=== PATIENT | male | born 1955 | race Caucasian/White ===

== ENCOUNTER 2016-08-27 09:55 | Outpatient (CLI) | payer OTHER ==
[2016-08-27] VITALS (7 sets, daily range): BP systolic 102–166; BP diastolic 66–89
[~2016-08-27 09:55] MED LIST: AMIO200T PO; ASPI-482 PO; ATORVASTATIN CA80 MG PO; Aspirin PO; CHOL10003 PO; CLOP75TA PO; FENO54TA6 PO; FISH1CAP PO; LISI-334 PO; LISI2.5T PO; METF500T9 PO; METO-269 PO; METO25TA9 PO; NIAC750T PO
[2016-08-27] MEDS ORDERED: IV 1/2 NORMAL SALINE 1,000 ML IV ONE (10:15)
[2016-08-27] MEDS ORDERED: ASPI-482 PO (10:28)
[2016-08-27 10:35] LABS: HEMATOCRIT 37.9 % (39.0-53.0); HEMOGLOBIN 12.7 g/dL (13.0-17.5); RED BLOOD COUNT 4.51 x10^6/uL (4.30-5.70); RED CELL DISTRIBUTION WIDTH 14.2 % (11.5-14.5); WHITE BLOOD COUNT 6.3 x10^3/uL (4.0-11.0)
[2016-08-27 10:50] LABS: CALCIUM 8.7 mg/dL (8.5-10.1); CREATININE 1.5 mg/dL (0.7-1.3); GFR 47.3; POTASSIUM 4.4 mmol/L (3.5-5.1)
[2016-08-27 10:58] LABS: PROTHROMBIN TIME PATIENT 12.7 SEC (11.7-14.0)
[2016-08-27] MEDS ORDERED: IODIXANOL 320 MG/ML 100 ML VIAL. ONE ×2 (11:52→12:31)
[2016-08-27] MEDS ORDERED: LIDOCAINE 2% 20 ML VIAL. ONE (11:52)
[2016-08-27] MEDS ORDERED: VERAPAMIL 5 MG/2 ML VIAL. ONE (12:13)
[2016-08-27] MEDS ORDERED: fentaNYL PF VIAL 100 MCG/2 ML VIAL ONE (12:13)
[2016-08-27] MEDS ORDERED: MIDAZOLAM HCL/PF 2 MG/2 ML VIAL. ONE (12:13)
[2016-08-27] MEDS ORDERED: HEPARIN for IV BOLUS 10,000 UNIT/10 ML VIAL. ONE (12:13)
[2016-08-27] MEDS ORDERED: NITROGLYCERIN 200 MCG/2 ML SYRINGE FOR CATH/VASC LAB. ONE (12:13)
[2016-08-27] MEDS ORDERED: HEPARIN for IV BOLUS 10,000 UNIT/10 ML VIAL. IART ONE (12:30)
[2016-08-27] MEDS ORDERED: MIDAZOLAM HCL/PF 2 MG/2 ML VIAL. IV ONE (12:30)
[2016-08-27] MEDS ORDERED: VERAPAMIL 5 MG/2 ML VIAL. IART ONE (12:30)
[2016-08-27] MEDS ORDERED: NITROGLYCERIN 200 MCG/2 ML SYRINGE FOR CATH/VASC LAB. IART ONE (12:30)
[2016-08-27] MEDS ORDERED: IODIXANOL 320 MG/ML 100 ML VIAL. IART ONE (12:30)
[2016-08-27] MEDS ORDERED: LIDOCAINE 2% 20 ML VIAL. IJ ONE (12:30)
[2016-08-27] MEDS ORDERED: fentaNYL PF VIAL 100 MCG/2 ML VIAL IV ONE (12:30)
[2016-08-27] MEDS ORDERED: CONTRAST GIVEN MC PRN (12:45)
[2016-08-27] MEDS ORDERED: IV 1/2 NORMAL SALINE 1,000 ML IV SCH (13:10)
[2016-08-27] MEDS ORDERED: MEXI200C PO (14:02)
--- NOTE | 2016-08-27 14:45 | CARD ---
APPROVED REPORT Procedure(s) performed: Left heart catheterization, selective coronary angiography and left ventricul ography via right transradial approach INDICATION The indication(s) include : Recurrent ventricular tachycardia, ischemic cardiomyopathy. PROCEDURE NARRATIVE After explaining the risks, benefits and alternative options, informed consent was obtained from rosa maria ent. Patient was brought to the cardiac Isotope Technologist and right wrist was prepped and draped in the usual fashion after confirming a positive modified Adama's test. Arterial access was obtained in the [facility] radial artery and a 6 Macedonian sheath was inserted. 6 Macedonian Daniel catheter was used to perform aggie ective angiography of the left and right coronary arteries. 6 Macedonian pigtail catheter was used to pe rform left ventriculography. Patient tolerated the procedure well. Hemostasis was achieved using TR band. There were no immediate complications. The following findings were noted. FINDINGS 1. Hemodynamics: Left ventricular end-diastolic pressure of 23 mmHg. No pullback gradient across th e aortic valve. 2. Left ventriculography: Posterobasal and diaphragmatic wall hypokinesis with ejection fraction est imated at 30-35%. No significant mitral regurgitation seen. 3. Coronary angiography: a. The left main coronary artery arose from the left sinus of Valsalva, gave rise to the left anteri or descending and left circumflex arteries and showed 20% stenosis involving the proximal segment. b. The left anterior descending artery did not show any significant stenosis. c. The left circumflex artery did not show any significant stenosis. d. The right coronary artery arose from the right sinus of Valsalva and showed 100% long and chronic total occlusion involving proximal, mid and distal segments (instent distally) with reconstitution o f posterior descending and posterolateral branches from left to right collaterals. Conclusion 1. Severe single-vessel coronary disease -long and chronic total occlusion involving the right coron tor artery that was described in prior cardiac catheterization. 2. Posterobasal and diaphragmatic wall hypokinesis with ejection fraction estimated at 30-35%. Recommendations 1. Optimization of medical therapy. 2. Refer patient to electrophysiology service for possible VT ablation.
== END 2016-08-27 15:30 | disposition home or self-care (01) ==
LOC: CCL 09:55
PROVIDERS: ATTEND Internal Medicine Cardiovascular Disease
DX: I25.10 Atherosclerotic heart disease of native coronary artery without angina pectoris (principal); I25.82 Chronic total occlusion of coronary artery; I25.2 Old myocardial infarction; E78.00 Pure hypercholesterolemia, unspecified; I10 Essential (primary) hypertension; E11.9 Type 2 diabetes mellitus without complications; F17.200 Nicotine dependence, unspecified, uncomplicated; Z95.5 Presence of coronary angioplasty implant and graft; Z79.01 Long term (current) use of anticoagulants; Z82.49 Family history of ischemic heart disease and other diseases of the circulatory system
CPT/HCPCS: 36415; 80048; 85027; 85610; 93458; C1769; C1892; J2250; J3010; J3490; 99152; 99153

== ENCOUNTER → 2018-01-07 | Outpatient (CLI) | payer BC ==
[2016-08-27 14:30] VITALS: BP 110/70
[~2018-01-07] MED LIST changes: +METO-239 PO; -METO25TA9 PO; +MEXI200C PO; +REGADENOSON 0.4 MG/5 ML DISP.SYRIN. IV ONE
--- NOTE | 2018-01-07 09:32 | CARD ---
MR#: [id number] Date of Study: 01/07/2018 Ordering Physician: LEON GOULD, Referring Physician: LEON GOULD Tech: Laila Heaton RDCS APPROVED REPORT EXAM: Two-dimensional and M-mode echocardiogram with Doppler and color Doppler. Other Information Quality : GoodHR: 68bpm Rhythm : Pacemaker INDICATION Congestive Heart Failure 2D DIMENSIONS RVDd3.6 (2.9-3.5cm)Left Atrium(2D)3.8 (1.6-4.0cm) IVSd1.4 (0.7-1.1cm)Aortic Root(2D)2.9 (2.0-3.7cm) LVDd6.0 (3.9-5.9cm)LVOT Diameter2.1 (1.8-2.4cm) PWd0.9 (0.7-1.1cm)LVDs4.8 (2.5-4.0cm) FS (%) 19.6 %SV70.5 ml Aortic Valve AoV Peak Prasanth.161.6cm/sAoV VTI30.1cm AO Peak GR.10.4mmHgLVOT Peak Prasanth.99.6cm/s AO Mean GR.6mmHgAVA (VMAX)2.04cm2 CARMELO (VTI)2.10cm2 Mitral Valve MV E Vhjdjcca62.5cm/sMV E Peak Gr.4mmHg MV DECEL IFKY128zdEM A Fudnhndq68.0cm/s MV E Mean Gr.1mmHgE/A Ratio0.7 MV A Enzfijac515ec Pulmonary Valve PV Peak Dgzyezdy389.7cm/s Tricuspid Valve TR P. Zahexixx239gy/sRAP KADCKDGK1sxOr TR Peak Gr.92lrLvZVOJ91mkYd Pulmonary Vein S1 Mjfbjwsn46.1cm/sD2 Hjhdjxnk95.3cm/s PVa ybiegwys670edfa LEFT VENTRICLE The Left Ventricle is mildly dilated. There is mild concentric left ventricular hypertrophy. The syst olic function is moderately impaired. The Ejection Fraction is estimated at 35%. There is global hypo kinesis of the left ventricle. Transmitral Doppler flow pattern is Grade I-abnormal relaxation patter n. RIGHT VENTRICLE The right ventricle is mildly dilated. There is normal right ventricular wall thickness. The right ve ntricular systolic function is normal. Device lead noted in RA/RV. ATRIA The left atrium is mildly dilated. The right atrium is mildly dilated. The interatrial septum is inta ct with no evidence for an atrial septal defect or patent foramen ovale as noted on 2-D or Doppler im aging. AORTIC VALVE The aortic valve is trileaflet. The aortic valve is normal in structure and function. Doppler and Col or Flow revealed no significant aortic regurgitation. There is no significant aortic valvular stenosi s. MITRAL VALVE The mitral valve is normal in structure and function. There is no evidence of mitral valve prolapse. There is no mitral valve stenosis. Doppler and Color-flow revealed mild mitral regurgitation. TRICUSPID VALVE The tricuspid valve is normal in structure and function. Doppler and Color Flow revealed mild tricusp id regurgitation. The PA pressure was estimated at 42 mmHg. There is no tricuspid valve prolapse or v egetation. There is no tricuspid valve stenosis. PULMONIC VALVE The pulmonary valve is normal in structure and function. Doppler and Color Flow revealed no pulmonic valvular regurgitation. There is no pulmonic valvular stenosis. GREAT VESSELS The aortic root is normal in size. The ascending aorta is normal in size. PERICARDIAL EFFUSION There is no evidence of significant pericardial effusion. Critical Notification Critical Value: No <Conclusion> The Left Ventricle is mildly dilated. The systolic function is moderately impaired. The Ejection Fraction is estimated at 35%. There is global hypokinesis of the left ventricle. There is mild concentric left ventricular hypertrophy. Device lead noted in RA/RV. There is no significant aortic valvular stenosis. Doppler and Color Flow revealed no significant aortic regurgitation. Doppler and Color-flow revealed mild mitral regurgitation. Doppler and Color Flow revealed mild tricuspid regurgitation. The PA pressure was estimated at 42 mmHg. Signed by : Diego Pedraza MD Electronically Approved : 01/07/2018 09:31:51
--- NOTE | 2018-01-07 12:24 | RAD ---
MR#: [id number] Date of Study: 01/07/2018 Ordering Physician: LEON GOULD, Referring Physician: PIPPA LORENZ Tech: RT Del (R) (N) APPROVED REPORT Test Type: Pharmacological Stress Nurse/Tech: Judy Chambers R.N. Test Indications: v tach Cardiac History: Family history, Hypertension, CAD, Stents, Pacemaker/defibrillator, former smoker Medications: Zocor Medical History: See Electronic Medical Record Resting ECG: NSR Resting Heart Rate: 59 bpm Resting Blood Pressure: 127/77mmHg Pretest Chest Pain: No chest pain Nurse/Tech Notes S1S2, lungs sound clear Consent: The procedure was explained to the patient in lay terms. Informed consent was witnessed. William eout was entered into [employer] History and Stress Test performed by Judy Chambers RJoeyN. Pharm. Details Pharmacologic stress testing was performed using 0.4mg per 5ml of regadenoson given intravenously ove r 7-10 seconds. Stress Symptoms Dyspnea POST EXERCISE Reason for Termination: Infusion complete Target HR: 132 Max HR: 75 bpm Max Blood Pressure: 144/75mmHg Blood Pressure response to exercise: Normal blood pressure response during stress. Chest Pain: No. Arrhythmia: No. ST Change: No. INTERPRETATION Stress EKG Conclusion: Baseline EKG showed sinus rhythm with old inferior infarct. Nondiagnostic schofield ges at peak stress. No arrhythmias. Imaging Protocol IMAGE PROTOCOL: Rest Tc-99m/stress Tc-99m 1 day Rest: Stress: Viability: Radiopharm.Tc99m LshumcsvrJh10a Sestamibi Lxsa34eHc 33.6mCi Duration 13min. 13min. Img Date 01/07/2018 01/07/2018 Inj-Img Unhb04gww. 60min. Rest Admin Site:IV - Right AntecubitalAdministrator:RT Del (R)(N) Stress Admin Site: IV - Right AntecubitalAdministrator: RT Del (R)(N) STRESS DATA End Diast. Vol.139.0mlLVEDV index BSA69.0ml End Syst. Vol.61.0mlLVESV index BSA30.0ml Myocardial Bmlz192.0gEject. Jrrewwlo09.0% Stress Scores Regional WT3.00Summed WT35.00 Regional WM0.00Summed WM5.00 LV Perfusion Scintigraphic images showed large fixed defect involving the inferior wall and extending into the inf eroseptal and inferolateral self consistent with previous myocardial infarction without any signific ant reversibility. Wall Motion Mid to distal inferior wall hypokinesis with ejection fraction calculated at 56%. LV Perf. Quant 17 Seg. SSS24.00 17 Seg. SRS24.00 17 Seg. SDS2.00 Stress Defect Extent (% LAD)1.30Rest Defect Extent (% LAD)4.40Rev. Defect Extent (% LAD)0.00 Stress Defect Extent (% LCX) 53.80Rest Defect Extent (% LCX)35.00Rev. Defect Extent (% LCX)11.30 Stress Defect Extent (% RCA)96.70Rest Defect Extent (% RCA)97.80Rev. Defect Extent (% RCA)2.20 Stress Defect Extent (% YOSELYN)39.10Rest Defect Extent (% YOSELYN)38.90Rev. Defect Extent (% YOSELYN)3.30 Conclusion 1. Regadenoson cardioisotope stress test showed large infarct involving the inferior wall and extendi ng into the inferoseptal and inferolateral self without any significant ischemia. 2. Mid to distal inferior wall hypokinesis with ejection fraction calculated at 56%. 3. Low risk for cardiac events. Signed by : Leon Gould, Electronically Approved : 01/07/2018 12:24:09
== END | disposition home or self-care (01) ==
LOC: ECHO 07:48
PROVIDERS: ATTEND Internal Medicine Cardiovascular Disease
DX: I08.1 Rheumatic disorders of both mitral and tricuspid valves (principal); I47.2 Ventricular tachycardia; E78.5 Hyperlipidemia, unspecified; I11.0 Hypertensive heart disease with heart failure; I50.22 Chronic systolic (congestive) heart failure; I25.2 Old myocardial infarction; I25.10 Atherosclerotic heart disease of native coronary artery without angina pectoris; Z87.891 Personal history of nicotine dependence; Z82.49 Family history of ischemic heart disease and other diseases of the circulatory system
CPT/HCPCS: 36415; 78452; 80061; 93017; 93306; 96374; 96375; 96376; A9500; J2785

== ENCOUNTER → 2019-07-05 | Outpatient (CLI) | payer BC ==
[2016-08-27 14:30] VITALS: BP 110/70
[~2019-07-05] MED LIST changes: +LIPITOR80 MG PO; +METF500T11 PO; -METF500T9 PO; +SOTA80TA48 PO
--- NOTE | 2019-07-05 09:47 | CARD ---
MR#: [id number] Date of Study: 07/05/2019 Ordering Physician: LEON GOULD, Referring Physician: LEON GOULD, Tech: [place] YISEL APPROVED REPORT EXAM: Two-dimensional and M-mode echocardiogram with Doppler and color Doppler. Other Information Quality : Good INDICATION Congestive Heart Failure ICD 2D DIMENSIONS RVDd3.1 (2.9-3.5cm)Left Atrium(2D)3.6 (1.6-4.0cm) IVSd1.1 (0.7-1.1cm)Aortic Root(2D)2.5 (2.0-3.7cm) LVDd5.5 (3.9-5.9cm)LVOT Diameter2.1 (1.8-2.4cm) PWd0.9 (0.7-1.1cm)LVDs4.9 (2.5-4.0cm) FS (%) 9.9 %SV31.2 ml LVEF(%)20.0 (>50%) Aortic Valve AoV Peak Prasanth.148.7cm/sAoV VTI31.3cm AO Peak GR.8.8mmHgLVOT Peak Prasanth.103.6cm/s AO Mean GR.5mmHgAVA (VMAX)2.34cm2 CARMELO (VTI)2.00cm2 Mitral Valve MV E Gmsvzbzv52.3cm/sMV DECEL IYCR668xk MV A Uonzdexn61.2cm/sE/A Ratio0.7 Tricuspid Valve TR P. Ofvhighw943cb/sRAP TTUCKMSN7awZl TR Peak Gr.50dvZuQWAW13xrGa Pulmonary Vein S1 Wspbwfip84.5cm/sD2 Mefwuunh94.3cm/s LEFT VENTRICLE The left ventricle is normal size. There is normal left ventricular wall thickness. Left ventricle sy stolic function is moderately impaired. The Ejection Fraction is 30-35%. There is moderate global hyp okinesis of the left ventricle. Transmitral Doppler flow pattern is Grade I-abnormal relaxation patte rn. RIGHT VENTRICLE The right ventricle is normal size. The right ventricular systolic function is normal. There is a pac emaker lead in the right ventricle. ATRIA The left atrium size is normal. The right atrium size is normal. A pacemaker is seen in the right atr ium consistent with history. The interatrial septum is intact with no evidence for an atrial septal d efect or patent foramen ovale as noted on 2-D or Doppler imaging. AORTIC VALVE The aortic valve is calcified but opens well. Doppler and Color Flow revealed no significant aortic r egurgitation. There is no significant aortic valvular stenosis. MITRAL VALVE The mitral valve is normal in structure and function. There is no evidence of mitral valve prolapse. There is no mitral valve stenosis. Doppler and Color-flow revealed mild mitral regurgitation. TRICUSPID VALVE The tricuspid valve is normal in structure and function. Doppler and Color Flow revealed trace tricus pid regurgitation. The PA pressure was estimated at 31 mmHg. There is no tricuspid valve stenosis. PULMONIC VALVE The pulmonic valve is not well visualized. Doppler and Color Flow revealed trace pulmonic valvular re gurgitation. There is no pulmonic valvular stenosis. GREAT VESSELS The aortic root is normal in size. The ascending aorta is mildly dilated at 3.5 cm. The IVC is normal in size and collapses >50% with inspiration. PERICARDIAL EFFUSION There is no evidence of significant pericardial effusion. Critical Notification Critical Value: No <Conclusion> Left ventricle systolic function is moderately impaired. The Ejection Fraction is 30-35%. Transmitral Doppler flow pattern is Grade I-abnormal relaxation pattern. There is a pacemaker lead in RA/RV Mild mitral regurgitation. Trace tricuspid regurgitation. The PA pressure was estimated at 31 mmHg. There is no evidence of significant pericardial effusion. Signed by : Leon Gould, Electronically Approved : 07/05/2019 09:46:31
--- NOTE | 2019-07-05 12:32 | RAD ---
MR#: [id number] Date of Study: 07/05/2019 Ordering Physician: LEON GOULD, Referring Physician: PIPPA LORENZ Tech: RT Aissatou Mathis) (N) APPROVED REPORT Test Type: Pharmacological Stress Nurse/Tech: RT Del (Jarred) (N) Test Indications: CORONARY ARTERY DISEASE Cardiac History: 3 STENTS ABOUT 6 YEARS AGO, defibrillator Medications: SEE EHR Medical History: hypertension, ex smoker, diabetic Resting ECG: sinus rhythm Resting Heart Rate: 60 bpm Resting Blood Pressure: 156/86mmHg Nurse/Tech Notes Consent: The procedure was explained to the patient in lay terms. Informed consent was witnessed. William eout was entered into [employer]. History and Stress Test performed by RT Aissatou Mathis) (N) Pharm. Details Pharmacologic stress testing was performed using 0.4mg per 5ml of regadenoson given intravenously ove r 7-10 seconds. POST EXERCISE Reason for Termination: Infusion complete Max HR: 76 bpm Max Blood Pressure: 156/86mmHg INTERPRETATION Stress EKG Conclusion: Baseline EKG showed sinus rhythm with old inferior infarct. No ischemic harley es at peak stress. No arrhythmias. Imaging Protocol IMAGE PROTOCOL: Rest Tc-99m/stress Tc-99m 1 day Rest: Stress: Viability: Radiopharm.Tc99m MfrlldnkrQv62w Sestamibi Dose10.7mCi 31.5mCi Duration 15min. 10min. Img Date 07/05/2019 07/05/2019 Inj-Img Yiqt05nxb. 60min. Rest Admin Site:IV - Right AntecubitalAdministrator:RT Del (Jarred)(N) Stress Admin Site: IV - Right AntecubitalAdministrator: RT Aissatou Mathis)(N) STRESS DATA End Diast. Vol.139.0mlAv. Heart Rate69.0bpm End Syst. Vol.77.0mlCO Index BSA0.0L/min Myocardial Caax449.0gEject. Nuzirkzb74.0% Stress Rates Pk. Fill Rate2.13EDV/secLVtime Pk. Fill 133.49msec Pk. Empty Rate3.06ESV/secLVtime Pk. Swbrw632.77msec 1/3 Pk. Fill1.31EDV/sec Stress Scores Regional WT1.00Summed WT24.00 Regional WM0.00Summed WM11.00 LV Perfusion Scintigraphic images showed large fixed defect involving the inferior wall extending into the inferos eptal and inferolateral self consistent with previous myocardial infarction without any significant reversibility. Wall Motion Mid to distal inferior wall hypokinesis with ejection fraction calculated at 43%. LV Perf. Quant 17 Seg. SSS29.00 17 Seg. SRS26.00 17 Seg. SDS3.00 Stress Defect Extent (% LAD)8.10Rest Defect Extent (% LAD)3.80Rev. Defect Extent (% LAD)0.60 Stress Defect Extent (% LCX) 58.80Rest Defect Extent (% LCX)55.00Rev. Defect Extent (% LCX)2.50 Stress Defect Extent (% RCA)97.80Rest Defect Extent (% RCA)97.80Rev. Defect Extent (% RCA)11.10 Stress Defect Extent (% YOSELYN)48.90Rest Defect Extent (% YOSELYN)44.30Rev. Defect Extent (% YOSELYN)7.20 Conclusion 1. Regadenoson cardioisotope stress test showed large infarct involving the inferior wall extending i nto the inferolateral and inferoseptal self without any significant ischemia. 2. Mid to distal inferior wall hypokinesis with ejection fraction calculated at 43%. 3. Low to intermediate risk for cardiac events. Signed by : Leon Gould, Electronically Approved : 07/05/2019 12:32:05
== END | disposition home or self-care (01) ==
LOC: NM 08:13
PROVIDERS: ATTEND Internal Medicine Cardiovascular Disease
DX: I08.2 Rheumatic disorders of both aortic and tricuspid valves (principal); I25.2 Old myocardial infarction; I21.19 ST elevation (STEMI) myocardial infarction involving other coronary artery of inferior wall; I25.10 Atherosclerotic heart disease of native coronary artery without angina pectoris
CPT/HCPCS: 78452; 93017; 93306; A9500; J2785

== ENCOUNTER → 2019-09-12 | Outpatient (CLI) | payer MEDICARE, OTHER ==
[2016-08-27 14:30] VITALS: BP 110/70
[~2019-09-12] MED LIST changes: +DAPA5TAB PO; +EZET10TA20 PO; +LEVO25TA4 PO; +METF-658 PO; -METF500T11 PO; +MEXI150C PO; -REGADENOSON 0.4 MG/5 ML DISP.SYRIN. IV ONE
== END | disposition home or self-care (01) ==
LOC: LAB 15:05
PROVIDERS: ATTEND Internal Medicine Cardiovascular Disease
DX: Z01.818 Encounter for other preprocedural examination (principal); Z11.59 Encounter for screening for other viral diseases
CPT/HCPCS: U0003-CS

== ENCOUNTER 2019-09-15 07:03 | Outpatient (CLI) | payer MEDICARE ==
[2019-09-15] VITALS (10 sets, daily range): BP systolic 100–153; BP diastolic 67–101
[~2019-09-15] VITALS: Ht 167.6 cm; Wt 90.7 kg
[~2019-09-15 07:03] MED LIST changes: -DAPA5TAB PO; -EZET10TA20 PO; -LEVO25TA4 PO; -MEXI150C PO
[2019-09-15 07:37] LABS: HEMATOCRIT 39.3 % (39.0-53.0); HEMOGLOBIN 13.2 g/dL (13.0-17.5); RED BLOOD COUNT 4.67 x10^6/uL (4.30-5.70); RED CELL DISTRIBUTION WIDTH 14.3 % (11.5-14.5); WHITE BLOOD COUNT 7.5 x10^3/uL (4.0-11.0)
[2019-09-15] MEDS ORDERED: EZET10TA20 PO (07:39)
[2019-09-15] MEDS ORDERED: DAPA5TAB PO (07:39)
[2019-09-15] MEDS ORDERED: LEVO25TA4 PO (07:39)
[2019-09-15] MEDS ORDERED: LIDOCAINE 1% PF 2 ML VIAL. ONE (07:47)
[2019-09-15 07:49] LABS: CREATININE 1.4 mg/dL (0.7-1.3); GFR 50.7; POTASSIUM 4.7 mmol/L (3.5-5.1)
[2019-09-15 08:02] LABS: PROTHROMBIN TIME PATIENT 12.6 SEC (11.7-14.0)
[2019-09-15] MEDS ORDERED: IODIXANOL 320 MG/ML 100 ML VIAL. ONE (08:22)
[2019-09-15] MEDS ORDERED: NITROGLYCERIN 200 MCG/2 ML SYRINGE FOR CATH/VASC LAB. ONE (08:30)
[2019-09-15] MEDS ORDERED: VERAPAMIL 5 MG/2 ML VIAL. ONE (08:30)
[2019-09-15] MEDS ORDERED: HEPARIN for IV BOLUS 10,000 UNIT/10 ML VIAL. ONE (08:30)
[2019-09-15] MEDS ORDERED: MIDAZOLAM HCL/PF 2 MG/2 ML VIAL. ONE (08:30)
[2019-09-15] MEDS ORDERED: fentaNYL PF VIAL 100 MCG/2 ML VIAL ONE (08:30)
--- NOTE | 2019-09-15 08:45 | PDOC ---
MODERATE SEDATION ASSESSMENT RISKS/ALTERNATIVES Risks/Alternatives Risks and alternatives of this type of sedation and procedure discussed with: RISK/ALTERNATIVES: Patient H & P ON CHART H & P H & P on chart and reviewed for co-morbid conditions and appropriate labs. H&P ON CHART: Yes STATUS PREG STATUS ASSESSED: N/A MEDS/ALLERGIES REVIEWED Meds/Allergies Reviewed Medications and Allergies including time and route of recently administered narcotics and sedatives. MEDS/ALLERGIES REVIEWED: Yes ASA RATING ASA RATING: III AIRWAY ASSESSMENT Airway Assessment Airway patency, oral function limitations, presence of caps, crowns, dentures, partials, and ability to extend neck assessed. AIRWAY ASSESSMENT: Yes MALLAMPATI SCORE MALLAMPATI SCORE: II PRE-SEDATION ASSESSMENT PRE-SEDATION ASSESSMENT: Yes LEON GOULD MD Sep 15, 2019 08:45
[2019-09-15] MEDS ORDERED: MIDAZOLAM HCL/PF 2 MG/2 ML VIAL. IV ONE (09:00)
[2019-09-15] MEDS ORDERED: LIDOCAINE 1% PF 2 ML VIAL. INJ ONE (09:00)
[2019-09-15] MEDS ORDERED: VERAPAMIL 5 MG/2 ML VIAL. IART ONE (09:00)
[2019-09-15] MEDS ORDERED: NITROGLYCERIN 200 MCG/2 ML SYRINGE FOR CATH/VASC LAB. IART ONE (09:00)
[2019-09-15] MEDS ORDERED: HEPARIN for IV BOLUS 10,000 UNIT/10 ML VIAL. IART ONE (09:00)
[2019-09-15] MEDS ORDERED: IODIXANOL 320 MG/ML 100 ML VIAL. IART ONE (09:00)
[2019-09-15] MEDS ORDERED: fentaNYL PF VIAL 100 MCG/2 ML VIAL IV ONE (09:00)
[2019-09-15] MEDS ORDERED: CONTRAST GIVEN. MC PRN (09:15)
[2019-09-15] MEDS ORDERED: IV 1/2 NORMAL SALINE 1,000 ML IV SCH (09:16)
--- NOTE | 2019-09-15 09:29 | CARD ---
MR#: [id number] Date of Study: 09/15/2019 Ordering Physician: LEON FONTANA, Referring Physician: LEON FONTANA, Tech: Enma Parker APPROVED REPORT Technologist: Enma Parker Nurse: Missy Rosenberg Procedure(s) performed: Left heart catheterization, selective coronary angiography and left ventricul ography via right transradial approach fl time: 4.4 mins dose: 72 gycm2 contrast: 125 ml moderate sedation: 26 MINS INDICATION The indication(s) include : Recurrent ventricular tachycardia. CSHA Clinical Frailty Scale CSHA Clinical Frailty Scale: Mildly Frail Heart Failure Heart Failure: No PROCEDURE NARRATIVE After explaining the risks, benefits and alternative options, informed consent was obtained from rosa maria ent. Patient was brought to the cardiac [place] Filler and right wrist was prepped and draped in the usual fashion after confirming a positive modified Adama's test. Arterial access was obtained in the [facility] t radial artery and a 6 Djiboutian sheath was inserted. 6 [place]ib[place] Daniel catheter was used to perform aggie ective angiography of the left and right coronary arteries. 6 [place]ib[place]ian pigtail catheter was used to pe rform left ventriculography. Patient tolerated the procedure well. Hemostasis was achieved using TR band. There were no immediate complications. The following findings were noted. FINDINGS 1. Hemodynamics: Left ventricular end-diastolic pressure of 14 mmHg. No pullback gradient across th e aortic valve. 2. Left ventriculography: Moderate left ventricular systolic dysfunction with akinetic posterobasal and diaphragmatic self. The ejection fraction is estimated at 25 to 30%. No significant mitral reg urgitation seen. 3. Coronary angiography: a. The left main coronary artery arose from the left sinus of Valsalva, gave rise to the left anteri or descending and left circumflex arteries and did not show any significant stenosis. b. The left anterior descending artery was ectatic proximally and did not show any significant steno sis. c. The left circumflex artery showed 30% stenosis in the proximal segment of obtuse marginal branch. d. The right coronary artery arose from the right sinus of Valsalva and showed 100% chronic and long total occlusion involving the proximal, mid and distal (within stent distally) segments with reconst itution of posterior descending and posterolateral branches from left to right collaterals. Conclusion 1. Chronic total occlusion of right coronary artery, described in prior cardiac catheterizations wit hout any other lesions needing intervention. 2. Moderate left ventricular systolic dysfunction, akinetic posterobasal and diaphragmatic self wi th ejection fraction estimated at 25 to 30% Recommendations Follow-up with electrophysiology service for further recommendations regarding recurrent ventricular tachycardia. Continue medical management for coronary artery disease. Signed by : Leon Fontana, Electronically Approved : 09/15/2019 09:28:43
[2019-09-15] MEDS ORDERED: NITROGLYCERIN SUBLINGUAL 0.4 MG BOTTLE OF 25. SL PRN (09:30)
[2019-09-15] MEDS ORDERED: MEXI150C PO (10:33)
--- NOTE | 2019-09-15 11:44 | NUR ---
Discharge Note: [facility] Discharge instructions and discharge home medications reviewed with Patient and a copy given. All questions have been answered and understanding verbalized. The following instructions and handouts were given: radial site care and adult moderate sedation Discontinued lines and drains: Peripheral IV intact. Patient discharged to Home or Self Care withFamily Membervia Wheelchair
== END 2019-09-15 11:47 | disposition home or self-care (01) ==
LOC: CCL 07:03
PROVIDERS: ATTEND Internal Medicine Cardiovascular Disease
DX: I25.10 Atherosclerotic heart disease of native coronary artery without angina pectoris (principal); I47.2 Ventricular tachycardia; Z72.89 Other problems related to lifestyle; Z79.899 Other long term (current) drug therapy; Z87.891 Personal history of nicotine dependence
CPT/HCPCS: 36415; 80048; 85027; 85610; 93458; 99152; 99153; C1769; C1892; J1644; J2250; J3010; J3490; Q9967

== ENCOUNTER 2019-11-01 20:56 | Inpatient (IN) | payer MEDICARE ==
[~2019-11-01] VITALS: Ht 165.1 cm; Wt 87.7 kg
[~2019-11-01 20:56] MED LIST changes: +DAPA5TAB PO; +EZET10TA20 PO; +LEVO25TA4 PO; +MEXI150C PO
--- NOTE | 2019-11-01 21:14 | RAD ---
Exam: CT head INDICATION: Weakness TECHNIQUE: Sequential axial images through the head were obtained without the administration of IV contrast. Comparisons: None FINDINGS: No focal parenchymal lesion or hemorrhage is identified. There is no midline shift or sulcal effacement. 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 There is a small hypodensity in the right cerebellum. No acute vascular territory infarction is identified. Walsh-white distinction is preserved. The ventricular system is within normal limits without compression hydrocephalus. The basal cisterns are well maintained. The visualized portions of the paranasal sinuses and mastoid air cells are well-pneumatized. No acute fractures. IMPRESSION: Small hypodensity in the right cerebellum may represent chronic versus subacute ischemia. Additionally chronic appearing infarct at the right frontal lobe is slightly increased in size when compared to study in 2015. Correlate with symptomatology. If there are concerns for acute ischemia MRI would better evaluate. Exposure: One or more of the following in the visualized dose reduction techniques were utilized for this examination: 1. Automated exposure control 2. Adjustment of the MA and/or KV according to patient size Use of iterative of reconstructive technique FOR INTERNAL CODING PURPOSES Critical result: Findings discussed with SHAKIR FRASER at 11/01/2019 9:08 PM. RESULT CODE: (C) Electronically signed by: Cathy Watson MD (11/01/2019 9:11 PM) [id number]
--- NOTE | 2019-11-01 21:17 | PHYS DOC ---
Past Medical History Past Medical History: CVA, Diabetes-Type II, IN Past Surgical History: Other Additional Past Surgical Histo: UNKNOWN Smoking Status: Former Smoker Alcohol Use: Occasionally Drug Use: None NIHSS Stroke Scale NIH Stroke Scale: NIH Stroke Scale Response (Comments) Value Level of Consciousness: 0 Alert/Responsive 0 LOC Questions: 0 Answers both correctly 0 LOC Commands: 0 Performs both tasks 0 Best Gaze: 0 Normal 0 Visual: 0 No visual loss 0 Facial Palsy: 2 Partial paralysis 2 Motor - Left Arm 0 No drift 0 Motor - Right Arm 0 No drift 0 Motor - Left Leg 0 No drift 0 Motor: Right Leg 0 No drift 0 Limb Ataxia: 0 Absent 0 Sensory: 1 Mid to moderate loss 1 Best Language: 1 Mild to mod aphasia 1 Dysathria: 0 Normal 0 Extinction and Inattention: 0 Normal 0 Total 4 General Adult EDM: Chief Complaint: NEURO SYMPTOMS/DEFICITS HPI: HPI: Patient is a 64 year oldnte-qxwi-idp male past medical history coronary artery disease hypertension diabetes hyperlipidemia and previous TIAs presents with a chief complaint of left facial droop slurred speech left upper and lower extremity weakness. Patient patient states he woke up and got of bed around 1300 hrs. At the time he noticed weakness in his left lower extremity. Patient also states he had difficulty gripping his phone with his left hand. 1 hour prior to arrival family noticed that patient had slurred speech and a facial droop. NIH stroke scale 4. Patient denies any headache dizziness chest pain or shortness of breath. Review of Systems: Review of Systems: Review of systems: Constitutional symptoms- No fever, no chills. Eyes- No Discharge, No Visual Loss Respiratory symptoms- No shortness of breath, No wheezing, No Dyspnea on Exertion Cardiovascular Systems; No chest pain, No Palpitations, No syncope Gastrointestinal symptoms: NO abdominal pain, no nausea, no vomiting or diarrhea. Genitourinary symptoms: No dysuria. Musculoskeletal symptoms: No back pain No extremity pain. NEUROLOGICAL Symptoms: No headache, no generalized weakness; positive slurred speech positive facial droop Heart Score: Risk Factors: Risk Factors: DM, Current or recent (<one month) smoker, HTN, HLP, family history of CAD, obesity. Risk Scores: Score 0 - 3: 2.5% MACE over next 6 weeks - Discharge Home Score 4 - 6: 20.3% MACE over next 6 weeks - Admit for Clinical Observation Score 7 - 10: 72.7% MACE over next 6 weeks - Early Invasive Strategies Allergies: Allergies: Allergies Coded Allergies Type Severity Reaction Last Updated Verified No Known Drug Allergies 05/26/14 No Physical Exam: PE: General: alert, no acute distress. Skin: warm, dry and intact. Head:: Normocephalic, atraumatic. Neck: Trachea midline. Eyes: EOMI, Normal conjunctiva, No drainage CARDIOVASCULAR: Regular rate and rhythm RESPIRATORY: No respiratory distress Back: Full range of motion. MUSCULOSKELETAL: Full range of motion of bilateral upper and lower extremities. GASTROINTESTINAL: Abdomen soft without rebound or guarding. NEUROLOGICAL: Alert and noted to person, place and time. Left facial droop and slurred speech Psychiatric: Cooperative. Normal judgment Current Patient Data: Labs: Laboratory Tests Test 11/01/19 21:05 Glucose (Fingerstick) 148 mg/dL (70-99) H EKG: EKG: [] EKG 2107 Heart rate [address] elevation no ST depression no acute IN Radiology/Procedures: Radiology/Procedures: [] Course & Med Decision Making: Course & Med Decision Making Pertinent Labs and Imaging studies reviewed. (See chart for details) [] Discussed CT findings with Radiologist. Discussed Patient with Dr Mckinney. Discussed Patient with Dr Falcon. NIH 4 Patient outside of TPA window with onset of symptoms 1300hrs. Pamelaon Disclaimer: Karel Disclaimer: This electronic medical record was generated, in whole or in part, using a voice recognition dictation system. NIHSS Stroke Scale NIH Stroke Scale: NIH Stroke Scale Response (Comments) Value Level of Consciousness: 0 Alert/Responsive 0 LOC Questions: 0 Answers both correctly 0 LOC Commands: 0 Performs both tasks 0 Best Gaze: 0 Normal 0 Visual: 0 No visual loss 0 Facial Palsy: 2 Partial paralysis 2 Motor - Left Arm 1 Drifts, but can hold 1 Motor - Right Arm 0 No drift 0 Motor - Left Leg 0 No drift 0 Motor: Right Leg 0 No drift 0 Limb Ataxia: 0 Absent 0 Sensory: 0 No loss 0 Best Language: 1 Mild to mod aphasia 1 Dysathria: 0 Normal 0 Extinction and Inattention: 0 Normal 0 Total 4 Departure Departure Impression: Primary Impression: CVA (cerebral vascular accident) Disposition: ADMITTED INPATIENT Admitting Physician: CATHERINE Condition: CRITICAL Referrals: STEFANIA OBRIEN MD (PCP) Justicifation of Admission Dx: Justifications for Admission: Justification of Admission Dx: Yes Stroke - Ischemic: Stroke-Ischemic SHAKIR FRASER I DO Nov 01, 2019 21:16
[2019-11-01 21:18] LABS: HEMATOCRIT 42.4 % (39.0-53.0); RED BLOOD COUNT 5.04 x10^6/uL (4.30-5.70); RED CELL DISTRIBUTION WIDTH 14.1 % (11.5-14.5)
[2019-11-01 21:24] LABS: CALCIUM 9.4 mg/dL (8.5-10.1); CREATININE 1.5 mg/dL (0.7-1.3); GFR 46.8; POTASSIUM 4.7 mmol/L (3.5-5.1)
[2019-11-01 21:26] LABS: PROTHROMBIN TIME PATIENT 12.8 SEC (11.7-14.0)
[2019-11-01] MEDS ORDERED: ONDANSETRON PF 4 MG/2 ML VIAL. IV PRN (21:45)
[2019-11-01] MEDS ORDERED: ASPIRIN CHEWABLE 81 MG TABLET. PO ONE (22:30)
[2019-11-01 23:00] VITALS: BP 152/81
[2019-11-01] MEDS ORDERED: FENO145T3 PO (23:43)
--- NOTE | 2019-11-02 02:42 | EKG ---
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
[2019-11-02 03:00] VITALS: BP 133/76
[2019-11-02 07:00] VITALS: BP 139/79
[2019-11-02] MEDS ORDERED: ASPIRIN RECTAL 300 MG SUPP. PR PRN (07:45)
[2019-11-02] MEDS ORDERED: ACETAMINOPHEN 325 MG TABLET. PO PRN (07:45)
[2019-11-02] MEDS ORDERED: ACETAMINOPHEN 650 MG SUPP.RECT. PR PRN (07:45)
[2019-11-02 08:18] LABS: CREATININE ISTAT 1.4 mg/dL (0.5-1.4); HEMOGLOBIN ISTAT 14.6 g/dL (14-18); ION CA ISTAT 1.17 mmol/L (1.13-1.32); POTASSIUM ISTAT 4.5 mmol/L (3.5-5.0)
[2019-11-02] MEDS: ASPIRIN ENTERIC COATED 325 MG TABLET.DR. PO SCH (10:58)
[2019-11-02 11:00] VITALS: BP 146/93
[2019-11-02] MEDS ORDERED: SOTALOL 80 MG TABLET. PO SCH (12:00)
[2019-11-02] MEDS: ASPIRIN ENTERIC COATED 81 MG TABLET.DR. PO SCH (12:00)
[2019-11-02] MEDS: CLOPIDOGREL BISULFATE 75 MG TABLET PO SCH (12:32)
[2019-11-02] MEDS: FENOFIBRATE,MICRONIZED 134 MG CAPSULE PO SCH (12:32)
[2019-11-02] MEDS: CHOLECALCIFEROL (VITAMIN D3) 1,000 UNIT TABLET PO SCH (12:32)
[2019-11-02] MEDS: METOPROLOL SUCC 24HR ER 50 MG TAB.ER.24H. PO SCH (12:32)
[2019-11-02] MEDS: LISINOPRIL 5 MG TABLET. PO SCH (12:33)
[2019-11-02] MEDS: metFORMIN XR 500 MG TAB.ER.24H PO SCH (12:33)
[2019-11-02] MEDS: EZETIMIBE 10 MG TABLET. PO SCH (12:33)
--- NOTE | 2019-11-02 12:51 | RAD ---
EXAM: Carotid Doppler sonogram. HISTORY: Cerebral infarction. TECHNIQUE: Walsh scale and color Doppler sonographic evaluation of the neck with spectral waveform analysis was performed and static images are submitted for review. FINDINGS: There is mild atherosclerotic plaque involving the proximal right internal carotid artery. The peak systolic velocity within the right common carotid artery is 82 cm/sec. The peak systolic velocity within the right internal carotid artery is 68 cm/sec and the end diastolic velocity within the right internal carotid artery is 29 cm/sec. The right ICA/CCA ratio is less than 1.0. The peak systolic velocity within the left common carotid artery is 115 cm/sec. The peak systolic velocity within the left internal carotid artery is 73 cm/sec and the end diastolic velocity within the left internal carotid artery is 24 cm/sec. The left ICA/CCA ratio is less than 1.0. There is normal antegrade flow within both vertebral arteries. IMPRESSION: No Doppler evidence of greater than 50 percent stenosis involving the internal carotid arteries. PQRS Compliance Statement - Stenosis calculations for CT, MR and conventional angiography are based upon measurement of the distal ICA diameter in accordance with the NASCET methodology. Stenosis calculations for carotid ultrasound studies are derived from validated velocity criteria which are known to correlate with the NASCET methodology. Electronically signed by: Mitzy Wilburn MD (11/02/2019 12:49 PM) [id number]
--- NOTE | 2019-11-02 13:22 | CARD ---
MR#: [id number] Date of Study: 11/02/2019 Ordering Physician: CLAUDIA DESAI, Referring Physician: CLAUDIA DESAI, Tech: Thania Torres APPROVED REPORT EXAM: Two-dimensional and M-mode echocardiogram with Doppler and color Doppler. Other Information Quality : AverageHR: 58bpm Technically limited study due to body habitus. INDICATION CVA/TIA Congestive Heart Failure Echo Enhancing Agent Indication: Rule Out Septal Defect Agent/Amount Used: Agitated Saline 10mL Surgery/Intervention ICD/Pacemaker: Date: 2014 2D DIMENSIONS RVDd4.9 (2.9-3.5cm)Left Atrium(2D)3.5 (1.6-4.0cm) IVSd1.0 (0.7-1.1cm)Aortic Root(2D)3.2 (2.0-3.7cm) LVDd5.6 (3.9-5.9cm)LVOT Diameter2.0 (1.8-2.4cm) PWd0.8 (0.7-1.1cm)LVDs3.7 (2.5-4.0cm) FS (%) 34.2 %SV95.2 ml LVEF(%)62.5 (>50%) Aortic Valve AoV Peak Prasanth.149.7cm/sAoV VTI26.8cm AO Peak GR.9.0mmHgLVOT Peak Prasanth.83.8cm/s LVOT VTI 15.94cmAO Mean GR.5mmHg CARMELO (VMAX)1.90sz2WXJ (VTI)1.81cm2 Mitral Valve MV E Hsqcladf12.0cm/sMV E Peak Gr.145mmHg MV DECEL [id number] A Jpkxvbfc70.2cm/s MV E Mean Gr.1mmHgMV XPT113af E/A Ratio0.7MVA (PHT)2.15cm2 TDI E/Lateral E'6.2E/Medial E'6.6 Pulmonary Valve PV Peak Uqujbsfv31.9cm/sPV Peak Grad.3mmHg Tricuspid Valve TR P. Ithkxgty860nk/sRAP [id number] TR Peak Gr.47hwOaLMYC06mnRr Pulmonary Vein S1 Ynckoilo40.1cm/sD2 Uqmkodgl28.9cm/s PVa owbxbpcu495nact LEFT VENTRICLE The left ventricle is normal size. There is normal left ventricular wall thickness. The systolic func tion is moderately impaired. The Ejection Fraction is 30-35%. Wall motion consistent with pacemaker a ctivation. There is hypokinesis of the mid to distal septal wall and hypokinesis of the inferior wall . Transmitral Doppler flow pattern is Grade I-abnormal relaxation pattern. RIGHT VENTRICLE The right ventricle is normal size. There is normal right ventricular wall thickness. The right ventr icular systolic function is normal. There is a pacemaker lead in the right ventricle. ATRIA The left atrium size is normal. The right atrium is mildly dilated. There is a pacemaker lead seen in the right atrium. The interatrial septum is intact with no evidence for an atrial septal defect or p atent foramen ovale as noted on 2-D or Doppler imaging. AORTIC VALVE The aortic valve is thickened but opens well. Doppler and Color Flow revealed no significant aortic r egurgitation. There is no significant aortic valvular stenosis. Calculated aortic valve area is 1.83 cm2 with maximum pressure gradient of 10 mmHg and mean pressure gradient of 5 mmHg. MITRAL VALVE The mitral valve is normal in structure and function. There is no evidence of mitral valve prolapse. There is no mitral valve stenosis. Doppler and Color-flow revealed trace mitral regurgitation. TRICUSPID VALVE The tricuspid valve is normal in structure and function. Doppler and Color Flow revealed trace tricus pid regurgitation with an estimated PAP of 35 mmHg. There is no tricuspid valve stenosis. PULMONIC VALVE The pulmonic valve is not well visualized. Doppler and Color Flow revealed no pulmonic valvular regur gitation. There is no pulmonic valvular stenosis. GREAT VESSELS The aortic root is normal in size. The IVC is normal in size and collapses >50% with inspiration. PERICARDIAL EFFUSION There is no evidence of significant pericardial effusion. Critical Notification Critical Value: No <Conclusion> The systolic function is moderately impaired. The Ejection Fraction is 30-35%. Wall motion consistent with pacemaker activation. There is hypokinesis of the mid to distal septal wa ll and hypokinesis of the inferior wall. There is a pacemaker lead in the right ventricle. Signed by : Gene Vega, Electronically Approved : 11/02/2019 13:22:07
--- NOTE | 2019-11-02 13:47 | PDOC2 ---
BANG ANDREA CARE WORKER 11/02/19 1347: CARDIAC CONSULT DATE OF CONSULT Date of Consult DATE: 11/02/19 TIME: 13:46 REASON FOR CONSULT Reason for Consult: abnormal echo, thoughts on anticoagulation REFERRING PHYSICIAN Referring Physician: Terrie SOURCE Source: Chart review, Patient HISTORY OF PRESENT ILLNESS HISTORY OF PRESENT ILLNESS This is a pleasant 64 yo male admitted for stroke symptoms. Reports that around 10 AM he woke with left facial droop and weakness to his left arm and leg. He decided to go back to sleep and in the afternoon his symptoms remained and called his son and was taken to ER. Denies any chest pain, palpitations, or SOA and lately he has been more fatigue than usual. No visual or auditory changes. No forms of aphasia. No recent falls or any injury. There has been no subtle str alaina symptoms in the last week and no hx of CVA. He does have cardiomyopathy and VT with ablations in the past but no afib or atrial flutter. His sotalol was also recently increased due to increasing episodes of VTs treated by his AICD with ATP burst. 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.) Pulmonary: Other (mild TUAN) CENTRAL NERVOUS SYSTEM: Other (No pertinent history) Heme/Onc: Anemia NOS Hepatobiliary: No pertinent hx Psych: No pertinent hx Musculoskeletal: Osteoarthritis Rheumatologic: No pertinent hx Infectious disease: No pertinent hx ENT: No pertinent hx Renal/: Chronic renal insuff Endocrine: Diabetes (2), Hypothyroidism PAST SURGICAL HISTORY Past Surgical History: Pacemaker (AICD biotronik), Other (PCI/CHRIS to RCA in 2008; RFA ablation) FAMILY HISTORY Family History: Heart Disease (father) SOCIAL HISTORY Smoke: Quit (remotely) ALCOHOL: occassional Drugs: None Lives: Alone CURRENT MEDICATIONS CURRENT MEDICATIONS Current Medications Medications (Trade) Dose Ordered Sig/Tavo Route PRN Reason Start Time Stop Time Status Last Admin Dose Admin Aspirin (Aspirin Chewable) 81 mg 1X ONCE PO 11/01/19 22:30 11/01/19 22:31 DC 11/01/19 22:16 Aspirin (Ecotrin) 325 mg DAILYWBKFT PO 11/02/19 08:00 11/02/19 10:58 Vitamin D (Vitamin D3) 2,000 unit DAILY PO 11/02/19 12:00 11/02/19 12:32 Clopidogrel Bisulfate (Plavix) 75 mg DAILY PO 11/02/19 12:00 11/02/19 12:32 EZETIMIBE (Zetia) 10 mg DAILY PO 11/02/19 12:00 11/02/19 12:33 Metformin HCl (Glucophage Xr) 500 mg DAILY PO 11/02/19 12:00 11/02/19 12:33 Sotalol HCl (Betapace) 80 mg DAILY PO 11/02/19 12:00 11/02/19 12:34 Fenofibrate (Lofibra) 134 mg DAILY PO 11/02/19 12:00 11/02/19 12:32 Lisinopril (Prinivil) 5 mg DAILY PO 11/02/19 12:00 11/02/19 12:33 Metoprolol Succinate (Toprol Xl) 50 mg DAILY PO 11/02/19 12:00 11/02/19 12:32 ALLERGIES ALLERGIES: Coded Allergies: No Known Drug Allergies (Unverified , 05/26/14) ROS Review of System 14 point ROS evaluated with pertinent positives noted per HPI PHYSICAL EXAM General: Alert, Oriented X3, Cooperative, No acute distress HEENT: Atraumatic, Mucous membr. moist/pink, Other (left facial droop) Lungs: Clear to auscultation, Normal air movement Heart: Regular rate (SR), Normal S1, Normal S2, Other (2/6 systolic murmur to LLS border) Abdomen: Soft, No tenderness Extremities: No cyanosis, No edema Skin: No breakdown, No significant lesion Neuro: Normal speech, Sensation intact Psych/Mental Status: Mental status NL, Mood NL MUSCULOSKELETAL: Other (lef side weakness) VITALS/I&O VITALS/I&O: Vital Signs Date Time Temp Pulse Resp B/P (MAP) Pulse Ox O2 Delivery O2 Flow Rate FiO2 11/02/19 12:34 59 146/93 11/02/19 11:00 97.6 20 97 Room Air 97.6 I & O 11/01/19 11/01/19 11/02/19 15:00 23:00 07:00 Intake Total 0 ml Balance 0 ml LABS Lab: Laboratory Tests Test 11/01/19 21:05 11/01/19 21:08 11/01/19 21:12 11/02/19 00:33 Glucose (Fingerstick) 148 mg/dL (70-99) H White Blood Count 10.0 x10^3/uL (4.0-11.0) Red Blood Count 5.04 x10^6/uL (4.30-5.70) Hemoglobin 14.0 g/dL (13.0-17.5) Hematocrit 42.4 % (39.0-53.0) Mean Corpuscular Volume 84 fL (79-100) Mean Corpuscular Hemoglobin 28 pg (25-35) Mean Corpuscular Hemoglobin Concent 33 g/dL (31-37) Red Cell Distribution Width 14.1 % (11.5-14.5) Platelet Count 162 x10^3/uL (140-400) Prothrombin Time 12.8 SEC (11.7-14.0) Prothrombin Time INR 1.0 (0.8-1.1) Activated Partial Thromboplast Time 30 SEC (24-38) Sodium Level 141 mmol/L (136-145) Potassium Level 4.7 mmol/L (3.5-5.1) Chloride Level 105 mmol/L (98-107) Carbon Dioxide Level 27 mmol/L (21-32) Anion Gap 9 (6-14) 18 mmol/L (6-14) H Blood Urea Nitrogen 23 mg/dL (8-26) Creatinine 1.5 mg/dL (0.7-1.3) H Estimated GFR (Cockcroft-Gault) 46.8 Glucose Level 150 mg/dL (70-99) H 148 mg/dL (70-99) H Calcium Level 9.4 mg/dL (8.5-10.1) POC Hemoglobin 14.6 g/dL (14-18) POC Hematocrit 43 % (37-52) POC Sodium 141 mmol/L (135-145) POC Potassium 4.5 mmol/L (3.5-5.0) POC Chloride 107 mmol/L (98-110) POC Total CO2 22 mmol/L (23-32) L POC Blood Urea Nitrogen 24 mg/dL (8-26) POC Creatinine 1.4 mg/dL (0.5-1.4) POC Ionized Calcium (Gretchen) 1.17 mmol/L (1.13-1.32) Troponin I Quantitative < 0.017 ng/mL (0.000-0.055) Laboratory Tests 11/01/19 21:08 Laboratory Tests 11/01/19 21:08 11/01/19 21:12 ECHOCARDIOGRAM ECHOCARDIOGRAM <Conclusion> The systolic function is moderately impaired. The Ejection Fraction is 30-35%. Wall motion consistent with pacemaker activation. There is hypokinesis of the mid to distal septal wall and hypokinesis of the inferior wall. There is a pacemaker lead in the right ventricle. DATE: 11/02/19 1232 HEART CATH HEART CATH Conclusion 1. Chronic total occlusion of right coronary artery, described in prior cardiac catheterizations without any other lesions needing intervention. 2. Moderate left ventricular systolic dysfunction, akinetic posterobasal and diaphragmatic self with ejection fraction estimated at 25 to 30% Recommendations Follow-up with electrophysiology service for further recommendations regarding recurrent ventricular tachycardia. Continue medical management for coronary artery disease. DATE: 09/15/19 0914 ASSESSMENT/PLAN ASSESSMENT/PLAN 1. Acute CVA: notable for left facial droop/left hemiparesis 2. Chronic systolic CHF: compensated 3. Combined NICM/ICM: EF unchanged with 30-35% Negative for ASD/PFO 4. AICD in situ: Biotronik. Nml device function, 0 A/V pacing. Notable for multiple VT episodes no shock but noted with several ATP treatment with last episode in 10/31/2019. No significant arrhythmias yesterday. 0 AFIB. Not MRI compatible 5. HTN: controlled 6. VT with prior ablation: last episode as noted above. Follows with EP 7. DM2 8. HLP 9. 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 Clinically stable 10. Suspect CKD3 Recommendations 1. Pt sotalol was just increased recently (due to VT) will clarify dosing with pt pharmacy, discussed with RN. possibly 160 mg bid. QTc is 497 with CrCL of 63. Will resume home dose but will check BMP and Mg in AM. Will check EKG in AM and if QTc is above 500 then may need to lower dosing. EP follow up as an outpt. 2. Pt is on 81 mg ASA and plavix at home. Defer dosing/changes to antiplatelet therapy to neurology. At this time there is no definitive indication for anticoagulation from a cardiac standpoint. CVA is possibly from small vessel disease 3. Continue secondary prevention measures. Pt lipids were not on goal in the past and was placed on zetia/statin/and PCSK9i but could not afford the latter. Will check lipids in AM. LEON GOULD MD 11/02/191927: CARDIAC CONSULT ASSESSMENT/PLAN ASSESSMENT/PLAN Patient seen and examined. Agree with WAX BLEACHER's assessment and plan. Continue treatment for acute CVA per neurology team 2D echo showed EF 30-35% without any evidence for ASD/PFO Chr systolic HF well compensated Device check did not show any AF episodes - doubt cardiac source for CVA Continue sotalol for VT suppression Carotid duplex did not show any significant stenosis CAD clinically stable - recent cath did not show any lesions needing intervention Thank you for your consultation BANG ANDREA APRN Nov 02, 2019 13:47 LEON GOULD MD Nov 02, 2019 19:28
--- NOTE | 2019-11-02 13:47 | NUR ---
SS following for discharge planning. SS reviewed pt chart and discussed with pt RN. Pt is from home alone and is currently on room air. PT/OT/ST recommended acute rehabilitation. SS met with pt and son in room to discuss discharge planning and acute rehabilitation. Pt declined acute rehabilitation stating that he preferred to discharge to home and go to outpatient therapy at [facility]. Pt's son reported that he would help pt at home. Pt's RN notified. SS will continue to follow for discharge planning.
--- NOTE | 2019-11-02 14:10 | PDOC2 ---
NEUROLOGY CONSULT Date of Service DOS: DATE: 11/02/19 TIME: 14:02 Reason for Consult Reason for Consult: Stroke Referring Physician Referring Physician: Dr. Johnson PCP: Dr. Marino Source Source: Chart review, Patient History of Present Illness History of Present Illness The patient is a 64-year-old right-handed male who woke up at 10 AM feeling nauseated and dizzy and then noticed at about noon that he had left-sided weakness. Later in the day his family noticed left facial droop. He finally came to the emergency department yesterday evening. I discussed the case with Dr. Vega and we agreed that the patient was not a candidate for alteplase. Patient has been told he has had strokes in the past only showing up on head scans as he has never had a clinical stroke. There is no history of seizure or head injury. Past Medical History Cardiovascular: CAD, HTN, [place], Hyperlipidemia, Other (Cardiomyopathy) Endocrine: Diabetes Past Surgical History Past Surgical History: Pacemaker (/Defibrillator), Other (Cardiac catheterization, coronary stent) Family History Family History: CAD Social History Social History Single, quit smoking 12 years ago, just retired, rare alcohol Current Medications Current Medications Current Medications Ondansetron HCl (Zofran) 4 mg PRN Q8HRS PRN IV NAUSEA/VOMITING 1ST CHOICE; Start 11/01/19 at 21:45; Stop 11/02/19 at 21:44 Aspirin (Aspirin Chewable) 81 mg 1X ONCE PO Last administered on 11/01/19at 22:16; Start 11/01/19 at 22:30; Stop 11/01/19 at 22:31; Status DC Acetaminophen (Tylenol) 650 mg PRN Q6HRS PRN PO TEMP > 100.4F; Start 11/02/19 at 07:45 Acetaminophen (Tylenol Supp) 650 mg PRN Q4HRS PRN SD TEMP > 100.4F; Start 11/02/19 at 07:45 Aspirin (Ecotrin) 325 mg DAILYWBKFT PO Last administered on 11/02/19at 10:58; Start 11/02/19 at 08:00 Aspirin (Aspirin Rectal Supp) 300 mg PRN DAILY PRN SD IF UNABLE TO TAKE PO; Start 11/02/19 at 07:45 Aspirin (Ecotrin) 81 mg DAILY PO ; Start 11/02/19 at 12:00 Vitamin D (Vitamin D3) 2,000 unit DAILY PO Last administered on 11/02/19at 12:32; Start 11/02/19 at 12:00 Clopidogrel Bisulfate (Plavix) 75 mg DAILY PO Last administered on 11/02/19at 12:32; Start 11/02/19 at 12:00 EZETIMIBE (Zetia) 10 mg DAILY PO Last administered on 11/02/19at 12:33; Start 11/02/19 at 12:00 Levothyroxine Sodium (Synthroid) 25 mcg DAILY06 PO ; Start 11/02/19 at 15:30 Metformin HCl (Glucophage Xr) 500 mg DAILY PO Last administered on 11/02/19at 12:33; Start 11/02/19 at 12:00 Sotalol HCl (Betapace) 80 mg DAILY PO Last administered on 11/02/19at 12:34; Start 11/02/19 at 12:00 Atorvastatin Calcium (Lipitor) 80 mg QHS PO ; Start 11/02/19 at 21:00 Non-Formulary Medication (Dapagliflozin Propanediol (Farxiga)) 5 mg DAILY PO ; Start 11/03/19 at 09:00; Status UNV Fenofibrate (Lofibra) 134 mg DAILY PO Last administered on 11/02/19at 12:32; Start 11/02/19 at 12:00 Fish Oil (Fish Oil) 2,000 mg DAILY PO ; Start 11/02/19 at 20:00 Lisinopril (Prinivil) 5 mg DAILY PO Last administered on 11/02/19at 12:33; Start 11/02/19 at 12:00 Metoprolol Succinate (Toprol Xl) 50 mg DAILY PO Last administered on 11/02/19at 12:32; Start 11/02/19 at 12:00 Active Scripts Active Reported Fenofibrate (Fenofibrate Nanocrystallized) 145 Mg Tablet 145 Mg PO DAILY Zetia (Ezetimibe) 10 Mg Tablet 1 Tab PO DAILY 30 Days Farxiga (Dapagliflozin Propanediol) 5 Mg Tablet 5 Mg PO DAILY Levothyroxine Sodium 25 Mcg Tablet 1 Tab PO DAILY Sotalol (Sotalol Hcl) 80 Mg Tablet 180 Mg PO BID Lipitor (Atorvastatin Calcium) 80 Mg Tablet 80 Mg PO HS Aspir 81 (Aspirin) 81 Mg Tablet.dr 81 Mg PO DAILY Lisinopril 2.5 Mg Tablet 1 Tab PO DAILY Toprol Xl (Metoprolol Succinate) 50 Mg Tab.er.24h 1 Tab PO DAILY Vitamin D3 (Cholecalciferol (Vitamin D3)) 1,000 Unit Tablet 2,000 Unit PO DAILY Clopidogrel (Clopidogrel Bisulfate) 75 Mg Tablet 1 Tab PO DAILY Metformin Hcl Er (Metformin Hcl) 500 Mg Tab.er.24h 1 Tab PO DAILY Fish Oil 1,200 Mg Fish Oil (Fish Oil/Dha/Epa) 1 Each Capsule 2 Each PO DAILY Allergies Allergies: Coded Allergies: No Known Drug Allergies (Unverified , 05/26/14) ROS Review of System Negative for fever, chills, weight loss, shortness of breath, chest pain, indigestion, hematochezia, melena, and dysuria. Full 14-point review of systems is negative. Physical Exam Physical Examination General: Well-developed, well-nourished white male in no acute distress HEENT: Normocephalic andatraumatic. Tympanic membranes clear.Temporal arteriespulsatile and nontender.Fundoscopic exam unremarkable Neck: Supple without bruit, no meningismus Musculoskeletal: Stability:see neurologic. Gait exam:see neurologic. Tone:see neurologic.Strength:see neurologic. Neurological: Mental Status:intact, orientation, memory, attention span/concentration, language, fund of knowledge normal. Cranial Nerves:Pupils equal and reactive to light, extraocular movements areintact, visual chavarria are full to confrontation. Facial sensation is normal. There is a left central facial weakness. Vestibulo-ocular reflex is intact. Palate elevates and tongue protrudes in midline. All other cranial related problems are negative except as mentioned before.Reflexes:2+ and symmetric with flexor plantar responses. Motor:3/5 left hemiparesis. Coordination:Finger-nose finger and toiz-um-mkxb t esting are normal. Rapid alternating movements and fine finger movements are intact. Gait:Not tested. Sensory:Increased pinprick sensation on the left side. Vitals VITALS Vital Signs Date Time Temp Pulse Resp B/P (MAP) Pulse Ox O2 Delivery O2 Flow Rate FiO2 11/02/19 12:34 59 146/93 11/02/19 11:00 97.6 20 97 Room Air 97.6 Labs Labs Laboratory Tests Test 11/01/19 21:05 11/01/19 21:08 11/01/19 21:12 11/02/19 00:33 Glucose (Fingerstick) 148 mg/dL (70-99) White Blood Count 10.0 x10^3/uL (4.0-11.0) Red Blood Count 5.04 x10^6/uL (4.30-5.70) Hemoglobin 14.0 g/dL (13.0-17.5) Hematocrit 42.4 % (39.0-53.0) Mean Corpuscular Volume 84 fL (79-100) Mean Corpuscular Hemoglobin 28 pg (25-35) Mean Corpuscular Hemoglobin Concent 33 g/dL (31-37) Red Cell Distribution Width 14.1 % (11.5-14.5) Platelet Count 162 x10^3/uL (140-400) Prothrombin Time 12.8 SEC (11.7-14.0) Prothromb Time International Ratio 1.0 (0.8-1.1) Activated Partial Thromboplast Time 30 SEC (24-38) Sodium Level 141 mmol/L (136-145) Potassium Level 4.7 mmol/L (3.5-5.1) Chloride Level 105 mmol/L (98-107) Carbon Dioxide Level 27 mmol/L (21-32) Anion Gap 9 (6-14) 18 mmol/L (6-14) Blood Urea Nitrogen 23 mg/dL (8-26) Creatinine 1.5 mg/dL (0.7-1.3) Estimated GFR (Cockcroft-Gault) 46.8 Glucose Level 150 mg/dL (70-99) 148 mg/dL (70-99) Calcium Level 9.4 mg/dL (8.5-10.1) Bedside Hemoglobin 14.6 g/dL (14-18) Bedside Hematocrit 43 % (37-52) Bedside Sodium 141 mmol/L (135-145) Bedside Potassium 4.5 mmol/L (3.5-5.0) Bedside Chloride 107 mmol/L (98-110) Bedside Total CO2 22 mmol/L (23-32) Bedside Blood Urea Nitrogen 24 mg/dL (8-26) Bedside Creatinine 1.4 mg/dL (0.5-1.4) Bedside Ionized Calcium (Gretchen) 1.17 mmol/L (1.13-1.32) Troponin I Quantitative < 0.017 ng/mL (0.000-0.055) Laboratory Tests Test 11/01/19 21:05 11/01/19 21:08 11/01/19 21:12 11/02/19 00:33 Glucose (Fingerstick) 148 mg/dL (70-99) White Blood Count 10.0 x10^3/uL (4.0-11.0) Red Blood Count 5.04 x10^6/uL (4.30-5.70) Hemoglobin 14.0 g/dL (13.0-17.5) Hematocrit 42.4 % (39.0-53.0) Mean Corpuscular Volume 84 fL (79-100) Mean Corpuscular Hemoglobin 28 pg (25-35) Mean Corpuscular Hemoglobin Concent 33 g/dL (31-37) Red Cell Distribution Width 14.1 % (11.5-14.5) Platelet Count 162 x10^3/uL (140-400) Prothrombin Time 12.8 SEC (11.7-14.0) Prothromb Time International Ratio 1.0 (0.8-1.1) Activated Partial Thromboplast Time 30 SEC (24-38) Sodium Level 141 mmol/L (136-145) Potassium Level 4.7 mmol/L (3.5-5.1) Chloride Level 105 mmol/L (98-107) Carbon Dioxide Level 27 mmol/L (21-32) Anion Gap 9 (6-14) 18 mmol/L (6-14) Blood Urea Nitrogen 23 mg/dL (8-26) Creatinine 1.5 mg/dL (0.7-1.3) Estimated GFR (Cockcroft-Gault) 46.8 Glucose Level 150 mg/dL (70-99) 148 mg/dL (70-99) Calcium Level 9.4 mg/dL (8.5-10.1) Bedside Hemoglobin 14.6 g/dL (14-18) Bedside Hematocrit 43 % (37-52) Bedside Sodium 141 mmol/L (135-145) Bedside Potassium 4.5 mmol/L (3.5-5.0) Bedside Chloride 107 mmol/L (98-110) Bedside Total CO2 22 mmol/L (23-32) Bedside Blood Urea Nitrogen 24 mg/dL (8-26) Bedside Creatinine 1.4 mg/dL (0.5-1.4) Bedside Ionized Calcium (Gretchen) 1.17 mmol/L (1.13-1.32) Troponin I Quantitative < 0.017 ng/mL (0.000-0.055) Images Images CT head INDICATION: Weakness TECHNIQUE: Sequential axial images through the head were obtained without the administration of IV contrast. Comparisons: None FINDINGS: No focal parenchymal lesion or hemorrhage is identified. There is no midline shift or sulcal effacement. 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 There is a small hypodensity in the right cerebellum. No acute vascular territory infarction is identified. Walsh-white distinction is preserved. The ventricular system is within normal limits without compression hydrocephalus. The basal cisterns are well maintained. The visualized portions of the paranasal sinuses and mastoid air cells are well-pneumatized. No acute fractures. IMPRESSION: Small hypodensity in the right cerebellum may represent chronic versus subacute ischemia. Additionally chronic appearing infarct at the right frontal lobe is slightly increased in size when compared to study in 2015. Correlate with symptomatology. If there are concerns for acute ischemia MRI would better evaluate. Carotid Doppler sonogram. HISTORY: Cerebral infarction. TECHNIQUE: Walsh scale and color Doppler sonographic evaluation of the neck with spectral waveform analysis was performed and static images are submitted for review. FINDINGS: There is mild atherosclerotic plaque involving the proximal right internal carotid artery. The peak systolic velocity within the right common carotid artery is 82 cm/sec. The peak systolic velocity within the right internal carotid artery is 68 cm/sec and the end diastolic velocity within the right internal carotid artery is 29 cm/sec. The right ICA/CCA ratio is less than 1.0. The peak systolic velocity within the left common carotid artery is 115 cm/sec. The peak systolic velocity within the left internal carotid artery is 73 cm/sec and the end diastolic velocity within the left internal carotid artery is 24 cm/sec. The left ICA/CCA ratio is less than 1.0. There is normal antegrade flow within both vertebral arteries. IMPRESSION: No Doppler evidence of greater than 50 percent stenosis involving the internal carotid arteries. Echocardiogram: LEFT VENTRICLE The left ventricle is normal size. There is normal left ventricular wall thickness. The systolic function is moderately impaired. The Ejection Fraction is 30-35%. Wall motion consistent with pacemaker activation. There is hypokinesis of the mid to distal septal wall and hypokinesis of the inferior wall. Transmitral Doppler flow pattern is Grade I-abnormal relaxation pattern. RIGHT VENTRICLE The right ventricle is normal size. There is normal right ventricular wall thickness. The right ventricular systolic function is normal. There is a pacemaker lead in the right ventricle. ATRIA The left atrium size is normal. The right atrium is mildly dilated. There is a pacemaker lead seen in the right atrium. The interatrial septum is intact with no evidence for an atrial septal defect or patent foramen ovale as noted on 2-D or Doppler imaging. Negative agitated saline study AORTIC VALVE The aortic valve is thickened but opens well. Doppler and Color Flow revealed no significant aortic regurgitation. There is no significant aortic valvular stenosis. Calculated aortic valve area is 1.83 cm2 with maximum pressure gradient of 10 mmHg and mean pressure gradient of 5 mmHg. MITRAL VALVE The mitral valve is normal in structure and function. There is no evidence of mitral valve prolapse. There is no mitral valve stenosis. Doppler and Color-flow revealed trace mitral regurgitation. TRICUSPID VALVE The tricuspid valve is normal in structure and function. Doppler and Color Flow revealed trace tricuspid regurgitation with an estimated PAP of 35 mmHg. There is no tricuspid valve stenosis. PULMONIC VALVE The pulmonic valve is not well visualized. Doppler and Color Flow revealed no pulmonic valvular regurgitation. There is no pulmonic valvular stenosis. GREAT VESSELS The aortic root is normal in size. The IVC is normal in size and collapses >50% with inspiration. PERICARDIAL EFFUSION There is no evidence of significant pericardial effusion. Critical Notification Critical Value: No <Conclusion> The systolic function is moderately impaired. The Ejection Fraction is 30-35%. Wall motion consistent with pacemaker activation. There is hypokinesis of the mid to distal septal wall and hypokinesis of the inferior wall. There is a pacemaker lead in the right ventricle. The interatrial septum is intact with no evidence for an atrial septal defect or patent foramen ovale as noted on 2-D or Doppler imaging. Negative agitated saline study Assessment/Plan Assessment/Plan Impression: Infarcts on CT, right cerebellum and right frontal lobe, clinically lacunar infarct in the right hemisphere without evidence of large-vessel cerebrovascular disease. Cardiomyopathy for which he follows with Dr. Fontana and has undergone a pacemaker/defibrillator placement Hyperlipidemia, already on statin Recommendations: Continue aspirin, clopidogrel, statin I asked Dr. Fontana to consult on whether the patient should be placed on anticoagulation. From a neurology point of view these are small-vessel strokes, anticoagulation probably will not help, but he is a failure on aspirin and clopidogrel and if there is a cardiac-source for emboli, anticoagulation would be necessary. Rehabilitation modalities Will likely need inpatient rehabilitation Consult physiatry Has pacemaker/defibrillator, cannot have MRI here, possibly can have one at if we need one Also see stroke orders Thank you for letting me help with the patient's care. CLAUDIA DESAI MD Nov 02, 2019 14:10
[2019-11-02 15:00] VITALS: BP 126/79
[2019-11-02] MEDS: LEVOTHYROXINE 25 MCG TABLET. PO SCH (15:30)
--- NOTE | 2019-11-02 19:05 | PDOC1 ---
History and Physical Date of Admission Date of Admission 11/02/2019 Identification/Chief Complaint Chief Complaint I had left sided weakness Source Source: Chart review, Patient History of Present Illness History of Present Illness Patient is a 64 yo male with multiple medical comorbidities including strokes in the past who comes with a history of noticing around 10 AM the day prior to his admission he woke up with nausea and sesnation of left facial droop, he also reported weakness to his left arm and leg. He decided to go back to sleep and in the afternoon his symptoms remained and called his son and was taken to ER. Denies any chest pain, palpitations, or SOA and lately he has been more fatigue than usual. No visual or auditory changes. No forms of aphasia. No recent falls or any injury. There has been no subtle stroke symptoms in the last week and no hx of CVA. He does have cardiomyopathy and VT with ablations in the past but no afib or atrial flutter. Patient was evaluated and he was not a candidate for t Pa since he went back to sleep when his symptoms initially started. He feels better today compared to yesterday, he reports having had many "mini strokes". He has an extensive cardiac history with an AICD in place. Plan of care was discussed in detail. We were asked to admit for further evaluation of hsi stroke like symptoms. 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 END RIDER to RCA with [id number] collaterals.) Pulmonary: Other (mild TUAN) CENTRAL NERVOUS SYSTEM: Other (No pertinent history) Heme/Onc: Anemia NOS Hepatobiliary: No pertinent hx Psych: No pertinent hx Rheumatologic: No pertinent hx Infectious disease: No pertinent hx ENT: No pertinent hx Renal/: Chronic renal insuff Endocrine: Diabetes (2), Hypothyroidism Past Surgical History Past Surgical History: Pacemaker (AICD biotronik), Other (PCI/CHRIS to RCA in 2008; RFA ablation) Family History Family History: Heart Disease (father) Social History Smoke: Quit (remotely) ALCOHOL: occassional Drugs: None Current Problem List Problem List Problems Medical Problems: (1) CVA (cerebral vascular accident) Status: Acute Current Medications Current Medications Current Medications Medications (Trade) Dose Ordered Sig/Tavo Start Time Stop Time Status Last Admin Dose Admin Acetaminophen (Tylenol Supp) 650 mg PRN Q4HRS PRN 11/02/19 07:45 Acetaminophen (Tylenol) 650 mg PRN Q6HRS PRN 11/02/19 07:45 Aspirin (Aspirin Chewable) 81 mg 1X ONCE 11/01/19 22:30 11/01/19 22:31 DC 11/01/19 22:16 81 MG Aspirin (Aspirin Rectal Supp) 300 mg PRN DAILY PRN 11/02/19 07:45 Aspirin (Ecotrin) 81 mg DAILY 11/02/19 12:00 Atorvastatin Calcium (Lipitor) 80 mg QHS 11/02/19 21:00 Clopidogrel Bisulfate (Plavix) 75 mg DAILY 11/02/19 12:00 11/02/19 12:32 75 MG EZETIMIBE (Zetia) 10 mg DAILY 11/02/19 12:00 11/02/19 12:33 10 MG Fenofibrate (Lofibra) 134 mg DAILY 11/02/19 12:00 11/02/19 12:32 134 MG Fish Oil (Fish Oil) 2,000 mg DAILY 11/02/19 20:00 Levothyroxine Sodium (Synthroid) 25 mcg DAILY06 11/02/19 15:30 Lisinopril (Prinivil) 5 mg DAILY 11/02/19 12:00 11/02/19 12:33 5 MG Metformin HCl (Glucophage Xr) 500 mg DAILY 11/02/19 12:00 11/02/19 12:33 500 MG Metoprolol Succinate (Toprol Xl) 50 mg DAILY 11/02/19 12:00 11/02/19 12:32 50 MG Non-Formulary Medication (Dapagliflozin Propanediol (Farxiga)) 5 mg DAILY 11/03/19 09:00 UNV Ondansetron HCl (Zofran) 4 mg PRN Q8HRS PRN 11/01/19 21:45 11/02/19 21:44 Sotalol HCl (Betapace) 120 mg BID 11/02/19 21:00 Vitamin D (Vitamin D3) 2,000 unit DAILY 11/02/19 12:00 11/02/19 12:32 2,000 UNIT Allergies Allergies Allergies Coded Allergies Type Severity Reaction Last Updated Verified No Known Drug Allergies 05/26/14 No ROS Review of System CONSTITUTIONAL: No fever or chills EYES: No recent changes SKIN: No rash or itching CARDIOVASCULAR: No chest pain, syncope, palpitations, or edema RESPIRATORY: No SOB or cough GASTROINTESTINAL: No nausea, vomiting or abdominal pain NEUROLOGICAL: No headaches or weakness ENDOCRINE: No cold or heat intolerance GENITOURINARY: No urgency or frequency of urination MUSCULOSKELETAL: No back pain or joint pain LYMPHATICS: No enlarged lymph nodes PSYCHIATRIC: No anxiety or depression Physical Exam Physical Exam GEN.: No apparent distress. Alert and oriented. HEENT: Head is normocephalic, atraumatic NECK: Supple. LUNGS: Clear to auscultation. HEART: RRR, S1, S2 present. Peripheral pulses intact ABDOMEN: Soft, nontender. Positive bowel sounds. EXTREMITIES: Without any cyanosis. NEUROLOGIC: Normal speech, normal tone PSYCHIATRIC: Normal affect, normal mood. SKIN: No ulcerations Vitals Vitals Vital Signs Date Time Temp Pulse Resp B/P (MAP) Pulse Ox O2 Delivery O2 Flow Rate FiO2 11/02/19 15:00 98.1 50 20 126/79 (95) 96 Room Air 98.1 Labs Labs Laboratory Tests Test 11/01/19 21:05 11/01/19 21:08 11/01/19 21:12 11/02/19 00:33 Glucose (Fingerstick) 148 mg/dL (70-99) White Blood Count 10.0 x10^3/uL (4.0-11.0) Red Blood Count 5.04 x10^6/uL (4.30-5.70) Hemoglobin 14.0 g/dL (13.0-17.5) Hematocrit 42.4 % (39.0-53.0) Mean Corpuscular Volume 84 fL (79-100) Mean Corpuscular Hemoglobin 28 pg (25-35) Mean Corpuscular Hemoglobin Concent 33 g/dL (31-37) Red Cell Distribution Width 14.1 % (11.5-14.5) Platelet Count 162 x10^3/uL (140-400) Prothrombin Time 12.8 SEC (11.7-14.0) Prothromb Time International Ratio 1.0 (0.8-1.1) Activated Partial Thromboplast Time 30 SEC (24-38) Sodium Level 141 mmol/L (136-145) Potassium Level 4.7 mmol/L (3.5-5.1) Chloride Level 105 mmol/L (98-107) Carbon Dioxide Level 27 mmol/L (21-32) Anion Gap 9 (6-14) 18 mmol/L (6-14) Blood Urea Nitrogen 23 mg/dL (8-26) Creatinine 1.5 mg/dL (0.7-1.3) Estimated GFR (Cockcroft-Gault) 46.8 Glucose Level 150 mg/dL (70-99) 148 mg/dL (70-99) Calcium Level 9.4 mg/dL (8.5-10.1) Bedside Hemoglobin 14.6 g/dL (14-18) Bedside Hematocrit 43 % (37-52) Bedside Sodium 141 mmol/L (135-145) Bedside Potassium 4.5 mmol/L (3.5-5.0) Bedside Chloride 107 mmol/L (98-110) Bedside Total CO2 22 mmol/L (23-32) Bedside Blood Urea Nitrogen 24 mg/dL (8-26) Bedside Creatinine 1.4 mg/dL (0.5-1.4) Bedside Ionized Calcium (Gretchen) 1.17 mmol/L (1.13-1.32) Troponin I Quantitative < 0.017 ng/mL (0.000-0.055) Laboratory Tests Test 11/01/19 21:05 11/01/19 21:08 11/01/19 21:12 11/02/19 00:33 Glucose (Fingerstick) 148 mg/dL (70-99) White Blood Count 10.0 x10^3/uL (4.0-11.0) Red Blood Count 5.04 x10^6/uL (4.30-5.70) Hemoglobin 14.0 g/dL (13.0-17.5) Hematocrit 42.4 % (39.0-53.0) Mean Corpuscular Volume 84 fL (79-100) Mean Corpuscular Hemoglobin 28 pg (25-35) Mean Corpuscular Hemoglobin Concent 33 g/dL (31-37) Red Cell Distribution Width 14.1 % (11.5-14.5) Platelet Count 162 x10^3/uL (140-400) Prothrombin Time 12.8 SEC (11.7-14.0) Prothromb Time International Ratio 1.0 (0.8-1.1) Activated Partial Thromboplast Time 30 SEC (24-38) Sodium Level 141 mmol/L (136-145) Potassium Level 4.7 mmol/L (3.5-5.1) Chloride Level 105 mmol/L (98-107) Carbon Dioxide Level 27 mmol/L (21-32) Anion Gap 9 (6-14) 18 mmol/L (6-14) Blood Urea Nitrogen 23 mg/dL (8-26) Creatinine 1.5 mg/dL (0.7-1.3) Estimated GFR (Cockcroft-Gault) 46.8 Glucose Level 150 mg/dL (70-99) 148 mg/dL (70-99) Calcium Level 9.4 mg/dL (8.5-10.1) Bedside Hemoglobin 14.6 g/dL (14-18) Bedside Hematocrit 43 % (37-52) Bedside Sodium 141 mmol/L (135-145) Bedside Potassium 4.5 mmol/L (3.5-5.0) Bedside Chloride 107 mmol/L (98-110) Bedside Total CO2 22 mmol/L (23-32) Bedside Blood Urea Nitrogen 24 mg/dL (8-26) Bedside Creatinine 1.4 mg/dL (0.5-1.4) Bedside Ionized Calcium (Gretchen) 1.17 mmol/L (1.13-1.32) Troponin I Quantitative < 0.017 ng/mL (0.000-0.055) Images Images CT head INDICATION: Weakness TECHNIQUE: Sequential axial images through the head were obtained without the administration of IV contrast. Comparisons: None FINDINGS: No focal parenchymal lesion or hemorrhage is identified. There is no midline shift or sulcal effacement. 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 There is a small hypodensity in the right cerebellum. No acute vascular territory infarction is identified. Walsh-white distinction is preserved. The ventricular system is within normal limits without compression hydrocephalus. The basal cisterns are well maintained. The visualized portions of the paranasal sinuses and mastoid air cells are well-pneumatized. No acute fractures. IMPRESSION: Small hypodensity in the right cerebellum may represent chronic versus subacute ischemia. Additionally chronic appearing infarct at the right frontal lobe is slightly increased in size when compared to study in 2015. Correlate with symptomatology. If there are concerns for acute ischemia MRI would better evaluate. Carotid Doppler sonogram. HISTORY: Cerebral infarction. TECHNIQUE: Walsh scale and color Doppler sonographic evaluation of the neck with spectral waveform analysis was performed and static images are submitted for review. FINDINGS: There is mild atherosclerotic plaque involving the proximal right internal carotid artery. The peak systolic velocity within the right common carotid artery is 82 cm/sec. The peak systolic velocity within the right internal carotid artery is 68 cm/sec and the end diastolic velocity within the right internal carotid artery is 29 cm/sec. The right ICA/CCA ratio is less than 1.0. The peak systolic velocity within the left common carotid artery is 115 cm/sec. The peak systolic velocity within the left internal carotid artery is 73 cm/sec and the end diastolic velocity within the left internal carotid artery is 24 cm/sec. The left ICA/CCA ratio is less than 1.0. There is normal antegrade flow within both vertebral arteries. IMPRESSION: No Doppler evidence of greater than 50 percent stenosis involving the internal carotid arteries. Echocardiogram: LEFT VENTRICLE The left ventricle is normal size. There is normal left ventricular wall thickness. The systolic function is moderately impaired. The Ejection Fraction is 30-35%. Wall motion consistent with pacemaker activation. There is hy pokinesis of the mid to distal septal wall and hypokinesis of the inferior wall. Transmitral Doppler flow pattern is Grade I-abnormal relaxation pattern. RIGHT VENTRICLE The right ventricle is normal size. There is normal right ventricular wall thickness. The right ventricular systolic function is normal. There is a pacemaker lead in the right ventricle. ATRIA The left atrium size is normal. The right atrium is mildly dilated. There is a pacemaker lead seen in the right atrium. The interatrial septum is intact with no evidence for an atrial septal defect or patent foramen ovale as noted on 2-D or Doppler imaging. Negative agitated saline study AORTIC VALVE The aortic valve is thickened but opens well. Doppler and Color Flow revealed no significant aortic regurgitation. There is no significant aortic valvular stenosis. Calculated aortic valve area is 1.83 cm2 with maximum pressure gradient of 10 mmHg and mean pressure gradient of 5 mmHg. MITRAL VALVE The mitral valve is normal in structure and function. There is no evidence of mitral valve prolapse. There is no mitral valve stenosis. Doppler and Color-flow revealed trace mitral regurgitation. TRICUSPID VALVE The tricuspid valve is normal in structure and function. Doppler and Color Flow revealed trace tricuspid regurgitation with an estimated PAP of 35 mmHg. There is no tricuspid valve stenosis. PULMONIC VALVE The pulmonic valve is not well visualized. Doppler and Color Flow revealed no pulmonic valvular regurgitation. There is no pulmonic valvular stenosis. GREAT VESSELS The aortic root is normal in size. The IVC is normal in size and collapses >50% with inspiration. PERICARDIAL EFFUSION There is no evidence of significant pericardial effusion. Critical Notification Critical Value: No <Conclusion> The systolic function is moderately impaired. The Ejection Fraction is 30-35%. Wall motion consistent with pacemaker activation. There is hypokinesis of the mid to distal septal wall and hypokinesis of the inferior wall. There is a pacemaker lead in the right ventricle. The interatrial septum is intact with no evidence for an atrial septal defect or patent foramen ovale as noted on 2-D or Doppler imaging. Negative agitated saline study VTE Prophylaxis Ordered VTE Prophylaxis Devices: Yes VTE Pharmacological Prophylaxi: No Assessment/Plan Assessment/Plan Assessment/Plan Impression: Acute CVA. Strokes evident on CT, right cerebellum and right frontal lobe, clinically lacunar infarct in the right hemisphere without evidence of large- vessel cerebrovascular disease. 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 Nml device function, 0 A/V pacing. Notable for multiple VT episodes no shock but noted with several ATP treatment with last episode in 10/31/2019. No significant arrhythmias yesterday. 0 History of AFIB. Not MRI compatible Essential HTN: controlled VT with prior ablation: last episode as noted above. Follows with EP hsitory of Diabetes Mellitus type 2 Dyslipidemia History of CAD: Recent LHC as noted above with kown TAIL END RIDER to RCA with [id number] collaterals. Clinically stable CKD stage 3a Plan: admit patient telemetry follow recommendations from consultants, neurology as follows: Recommendations: Continue aspirin, clopidogrel, statin I asked Dr. Fontana to consult on whether the patient should be placed on anticoagulation. From a neurology point of view these are small-vessel strokes, anticoagulation probably will not help, but he is a failure on aspirin and clopidogrel and if there is a cardiac-source for emboli, anticoagulation would be necessary. Rehabilitation modalities Will likely need inpatient rehabilitation Consult physiatry Has pacemaker/defibrillator, cannot have MRI here, possibly can have one at if we need one Also see stroke orders cardiology recommendations as follows: Recommendations 1. Pt sotalol was just increased recently (due to VT) will clarify dosing with pt pharmacy, discussed with RN. possibly 160 mg bid. QTc is 497 with CrCL of 63. Will resume home dose but will check BMP and Mg in AM. Will check EKG in AM and if QTc is above 500 then may need to lower dosing. EP follow up as an outpt. 2. Pt is on 81 mg ASA and plavix at home. Defer dosing/changes to antiplatelet therapy to neurology. At this time there is no definitive indication for anticoagulation from a cardiac standpoint. CVA is possibly from small vessel disease 3. Continue secondary prevention measures. Pt lipids were not on goal in the past and was placed on zetia/statin/and [id number] but could not afford the latter. Will check lipids in AM. Justifications for Admission Other Justification RAY AVILES MD Nov 02, 2019 19:05
[2019-11-02 19:55] VITALS: BP 124/72
[2019-11-02] MEDS: OMEGA-3 FATTY ACIDS/FISH OIL 1,000 MG CAPSULE. PO SCH (20:32)
[2019-11-02] MEDS: SOTALOL 80 MG TABLET. PO SCH (20:34)
[2019-11-02] MEDS ORDERED: ATORVASTATIN CALCIUM 40 MG TABLET. PO SCH (21:00)
[2019-11-02 22:52] VITALS: BP 96/57
[2019-11-03 02:13] VITALS: BP 103/52
[2019-11-03 05:49] LABS: CALCIUM 9.3 mg/dL (8.5-10.1); CHOLESTEROL/HDL RATIO 4.6; CREATININE 1.4 mg/dL (0.7-1.3); GFR 50.7; MAGNESIUM 2.1 mg/dL (1.8-2.4); POTASSIUM 3.8 mmol/L (3.5-5.1)
[2019-11-03] MEDS: LEVOTHYROXINE 25 MCG TABLET. PO SCH (06:16)
[2019-11-03 07:14] VITALS: BP 107/64
[2019-11-03] MEDS: ASPIRIN ENTERIC COATED 325 MG TABLET.DR. PO SCH (08:00)
--- NOTE | 2019-11-03 08:12 | EKG ---
[facility] [address] [place] [address] Test Date: 2019-11-03 Test Time: 08:07:18 Pat Name: NATE ANSARI Department: Room: 211 1 Gender: M Jig Fitter: KIRBY : 1955 Requested By: BANG ANDREA Order Number: [id number] Reading MD: Measurements Intervals [place] Rate: 56 P: -90 CT: 122 QRS: 30 QRSD: 110 T: -48 QT: 486 QTc: 472 Interpretive Statements SINUS RHYTHM QRS(T) CONTOUR ABNORMALITY CONSISTENT WITH INFERIOR INFARCT AGE UNDETERMINED ABNORMAL ECG RI6.02 Compared to ECG 11/01/2019 21:07:30 Myocardial infarct finding now present T-wave abnormality no longer present Prolonged QT interval no longer present
--- NOTE | 2019-11-03 08:24 | PDOC ---
BANG ANDREA APARTMENT MAINTENANCE WORKER 11/03/19 0824: CARDIO Progress Notes Date and Time Date of Service 11/03/2019 Time of Evaluation 0920 Subjective Subjective: No Chest Pain, No shortness of breath, No Palpitations Vitals Vitals Vital Signs Date Time Temp Pulse Resp B/P (MAP) Pulse Ox O2 Delivery O2 Flow Rate FiO2 11/03/19 07:14 98.0 56 16 107/64 (78) 97 Room Air 98.0 Weight Weight [ ] Input and Output Intake and Output Intake and Output 11/03/19 07:00 Intake Total 700 ml Balance 700 ml Intake Oral 700 ml # Voids 1 Laboratory Labs Laboratory Tests Test 11/03/19 05:00 Sodium Level 142 mmol/L (136-145) Potassium Level 3.8 mmol/L (3.5-5.1) Chloride Level 106 mmol/L (98-107) Carbon Dioxide Level 25 mmol/L (21-32) Anion Gap 11 (6-14) Blood Urea Nitrogen 26 mg/dL (8-26) Creatinine 1.4 mg/dL (0.7-1.3) Estimated GFR (Cockcroft-Gault) 50.7 Glucose Level 113 mg/dL (70-99) Calcium Level 9.3 mg/dL (8.5-10.1) Magnesium Level 2.1 mg/dL (1.8-2.4) Triglycerides Level 154 mg/dL (0-150) Cholesterol Level 106 mg/dL (0-200) LDL Cholesterol, Calculated 52 mg/dL (0-100) VLDL Cholesterol, Calculated 31 mg/dL (0-40) Non-HDL Cholesterol Calculated 83 mg/dL (0-129) HDL Cholesterol 23 mg/dL (40-60) Cholesterol/HDL Ratio 4.6 Physical Exam HEENT: Neck Supple W Full Motion Chest: Symmetric LUNGS: Clear to Auscultation Heart: RRR (SR) Abdomen: Soft N/T (no VT episodes) Extremities: No Calf Tenderness Neurology: alert, oriented, follow commands Assessment Assessment 1. Acute CVA: notable for left facial droop/left hemiparesis 2. Chronic systolic CHF: compensated 3. Combined NICM/ICM: EF unchanged with 30-35% Negative for ASD/PFO 4. AICD in situ: Biotronik. Nml device function, 0 A/V pacing. Notable for multiple VT episodes no shock but noted with several ATP treatment with last episode in 10/31/2019. No significant arrhythmias yesterday. 0 AFIB. Not MRI compatible 5. HTN: controlled 6. VT with prior ablation: last episode as noted above. Follows with EP 7. DM2 8. HLP: on goal 9. 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 Clinically stable 10. Suspect CKD3: Cr stable at 1.4 Recommendations 1. [id number]. Continue with current 120 mg sotalol dosing bid. EP follow up as an outpt. Follow up in office as scheduled. 2. At this time there is no definitive indication for anticoagulation from a cardiac standpoint. CVA is possibly from small vessel disease. ASA has been increased per neuro, continue with plavix. 3. Continue secondary prevention measures 4. Nothing further cardiac morris. Justicifation of Admission Dx: Justifications for Admission: Justification of Admission Dx: Yes Stroke - Ischemic: Stroke-Ischemic LEON GOULD MD 11/03/19 1059: CARDIO Progress Notes Assessment Assessment Patient seen and examined. Agree with PHARMACY PICKING TECH's assessment and plan. Continue treatment for acute CVA per neurology team 2D echo showed EF 30-35% without any evidence for ASD/PFO Chr systolic HF well compensated Device check did not show any AF episodes - doubt cardiac source for CVA Continue sotalol for VT suppression Carotid duplex did not show any significant stenosis CAD clinically stable - recent cath did not show any lesions needing intervention Follow up with EP and our office as scheduled BANG ANDREA APRN Nov 03, 2019 08:24 LEON GOULD MD Nov 03, 2019 10:59
[2019-11-03] MEDS: METOPROLOL SUCC 24HR ER 50 MG TAB.ER.24H. PO SCH (08:47)
[2019-11-03] MEDS: ASPIRIN ENTERIC COATED 81 MG TABLET.DR. PO SCH (08:47)
[2019-11-03] MEDS: CHOLECALCIFEROL (VITAMIN D3) 1,000 UNIT TABLET PO SCH (08:47)
[2019-11-03] MEDS: EZETIMIBE 10 MG TABLET. PO SCH (08:50)
[2019-11-03] MEDS: metFORMIN XR 500 MG TAB.ER.24H PO SCH (08:50)
[2019-11-03] MEDS: CLOPIDOGREL BISULFATE 75 MG TABLET PO SCH (08:50)
[2019-11-03] MEDS: SOTALOL 80 MG TABLET. PO SCH (08:50)
[2019-11-03] MEDS: LISINOPRIL 5 MG TABLET. PO SCH (08:50)
[2019-11-03] MEDS: OMEGA-3 FATTY ACIDS/FISH OIL 1,000 MG CAPSULE. PO SCH (08:51)
[2019-11-03] MEDS: FENOFIBRATE,MICRONIZED 134 MG CAPSULE PO SCH (08:51)
[2019-11-03] MEDS ORDERED: NON FORMULARY ITEM (Dapagliflozin Propanediol (Farxiga) 5 MG) PO SCH (09:00)
--- NOTE | 2019-11-03 09:47 | PDOC ---
PROGRESS NOTES Date of Service DATE: 11/03/19 TIME: 09:44 Assessment Problems Medical Problems: (1) CVA (cerebral vascular accident) Status: Acute Infarcts on CT, right cerebellum and right frontal lobe, clinically lacunar infarct in the right hemisphere without evidence of large-vessel cerebrovascular disease. Cardiomyopathy for which he follows with Dr. Fontana and has undergone a pacemaker/defibrillator placement Hyperlipidemia, already on statin, lipids are fine on today's lab Plan Continue aspirin, clopidogrel, statin Nothing clearcut on cardiac evaluation that warrants the use of anticoagulation, patient is resistant to it anyway Rehabilitation modalities Will likely need inpatient rehabilitation, patient is resistant, I told him we would see how he does in therapy today Subjective No complaints, wants to go home without rehab Objective Vital Signs Date Time Temp Pulse Resp B/P (MAP) Pulse Ox O2 Delivery O2 Flow Rate FiO2 11/03/19 08:50 56 107/64 11/03/19 08:00 Room Air 11/03/19 07:14 98.0 16 97 98.0 Intake and Output 11/03/19 07:00 Intake Total 700 ml Balance 700 ml Intake Oral 700 ml # Voids 1 PHYSICAL EXAM Alert. Oriented to time, place and person. PERRL. EOMI. CN: no focal findings. Muscle tone: normal. Muscle strength: 4/5 left hemiparesis DTR: 2+ Plantar reflex: flexor Gait: not examined in bed. Sensory exam: no abnormal findings. No cerebellar signs elicited. Review of Relevant I have reviewed the following items tunde (where applicable) has been applied. Labs Laboratory Tests Test 11/01/19 21:05 11/01/19 21:08 11/01/19 21:12 11/02/19 00:33 Glucose (Fingerstick) 148 mg/dL (70-99) White Blood Count 10.0 x10^3/uL (4.0-11.0) Red Blood Count 5.04 x10^6/uL (4.30-5.70) Hemoglobin 14.0 g/dL (13.0-17.5) Hematocrit 42.4 % (39.0-53.0) Mean Corpuscular Volume 84 fL (79-100) Mean Corpuscular Hemoglobin 28 pg (25-35) Mean Corpuscular Hemoglobin Concent 33 g/dL (31-37) Red Cell Distribution Width 14.1 % (11.5-14.5) Platelet Count 162 x10^3/uL (140-400) Prothrombin Time 12.8 SEC (11.7-14.0) Prothromb Time International Ratio 1.0 (0.8-1.1) Activated Partial Thromboplast Time 30 SEC (24-38) Sodium Level 141 mmol/L (136-145) Potassium Level 4.7 mmol/L (3.5-5.1) Chloride Level 105 mmol/L (98-107) Carbon Dioxide Level 27 mmol/L (21-32) Anion Gap 9 (6-14) 18 mmol/L (6-14) Blood Urea Nitrogen 23 mg/dL (8-26) Creatinine 1.5 mg/dL (0.7-1.3) Estimated GFR (Cockcroft-Gault) 46.8 Glucose Level 150 mg/dL (70-99) 148 mg/dL (70-99) Calcium Level 9.4 mg/dL (8.5-10.1) Bedside Hemoglobin 14.6 g/dL (14-18) Bedside Hematocrit 43 % (37-52) Bedside Sodium 141 mmol/L (135-145) Bedside Potassium 4.5 mmol/L (3.5-5.0) Bedside Chloride 107 mmol/L (98-110) Bedside Total CO2 22 mmol/L (23-32) Bedside Blood Urea Nitrogen 24 mg/dL (8-26) Bedside Creatinine 1.4 mg/dL (0.5-1.4) Bedside Ionized Calcium (Gretchen) 1.17 mmol/L (1.13-1.32) Troponin I Quantitative < 0.017 ng/mL (0.000-0.055) Test 11/03/19 05:00 Sodium Level 142 mmol/L (136-145) Potassium Level 3.8 mmol/L (3.5-5.1) Chloride Level 106 mmol/L (98-107) Carbon Dioxide Level 25 mmol/L (21-32) Anion Gap 11 (6-14) Blood Urea Nitrogen 26 mg/dL (8-26) Creatinine 1.4 mg/dL (0.7-1.3) Estimated GFR (Cockcroft-Gault) 50.7 Glucose Level 113 mg/dL (70-99) Calcium Level 9.3 mg/dL (8.5-10.1) Magnesium Level 2.1 mg/dL (1.8-2.4) Triglycerides Level 154 mg/dL (0-150) Cholesterol Level 106 mg/dL (0-200) LDL Cholesterol, Calculated 52 mg/dL (0-100) VLDL Cholesterol, Calculated 31 mg/dL (0-40) Non-HDL Cholesterol Calculated 83 mg/dL (0-129) HDL Cholesterol 23 mg/dL (40-60) Cholesterol/HDL Ratio 4.6 Laboratory Tests Test 11/03/19 05:00 Sodium Level 142 mmol/L (136-145) Potassium Level 3.8 mmol/L (3.5-5.1) Chloride Level 106 mmol/L (98-107) Carbon Dioxide Level 25 mmol/L (21-32) Anion Gap 11 (6-14) Blood Urea Nitrogen 26 mg/dL (8-26) Creatinine 1.4 mg/dL (0.7-1.3) Estimated GFR (Cockcroft-Gault) 50.7 Glucose Level 113 mg/dL (70-99) Calcium Level 9.3 mg/dL (8.5-10.1) Magnesium Level 2.1 mg/dL (1.8-2.4) Triglycerides Level 154 mg/dL (0-150) Cholesterol Level 106 mg/dL (0-200) LDL Cholesterol, Calculated 52 mg/dL (0-100) VLDL Cholesterol, Calculated 31 mg/dL (0-40) Non-HDL Cholesterol Calculated 83 mg/dL (0-129) HDL Cholesterol 23 mg/dL (40-60) Cholesterol/HDL Ratio 4.6 Medications Current Medications Ondansetron HCl (Zofran) 4 mg PRN Q8HRS PRN IV NAUSEA/VOMITING 1ST CHOICE; Start 11/01/19 at 21:45; Stop 11/02/19 at 21:44; Status DC Aspirin (Aspirin Chewable) 81 mg 1X ONCE PO Last administered on 11/01/19at 22:16; Start 11/01/19 at 22:30; Stop 11/01/19 at 22:31; Status DC Acetaminophen (Tylenol) 650 mg PRN Q6HRS PRN PO TEMP > 100.4F; Start 11/02/19 at 07:45 Acetaminophen (Tylenol Supp) 650 mg PRN Q4HRS PRN ID TEMP > 100.4F; Start 11/02/19 at 07:45 Aspirin (Ecotrin) 325 mg DAILYWBKFT PO Last administered on 11/02/19at 10:58; Start 11/02/19 at 08:00 Aspirin (Aspirin Rectal Supp) 300 mg PRN DAILY PRN ID IF UNABLE TO TAKE PO; Start 11/02/19 at 07:45 Aspirin (Ecotrin) 81 mg DAILY PO Last administered on 11/03/19 08:47; Start 11/02/19 at 12:00 Vitamin D (Vitamin D3) 2,000 unit DAILY PO Last administered on 11/03/19 08:47; Start 11/02/19 at 12:00 Clopidogrel Bisulfate (Plavix) 75 mg DAILY PO Last administered on 11/03/19 08:50; Start 11/02/19 at 12:00 EZETIMIBE (Zetia) 10 mg DAILY PO Last administered on 11/03/19 08:50; Start 11/02/19 at 12:00 Levothyroxine Sodium (Synthroid) 25 mcg DAILY06 PO Last administered on 11/03/19at 06:16; Start 11/02/19 at 15:30 Metformin HCl (Glucophage Xr) 500 mg DAILY PO Last administered on 11/03/19 08:50; Start 11/02/19 at 12:00 Sotalol HCl (Betapace) 80 mg DAILY PO Last administered on 11/02/19at 12:34; Start 11/02/19 at 12:00; Stop 11/02/19 at 16:38; Status DC Atorvastatin Calcium (Lipitor) 80 mg QHS PO Last administered on 11/02/19at 20:32; Start 11/02/19 at 21:00 Non-Formulary Medication (Dapagliflozin Propanediol (Farxiga)) 5 mg DAILY PO ; Start 11/03/19 at 09:00; Status UNV Fenofibrate (Lofibra) 134 mg DAILY PO Last administered on 11/03/19 08:51; Start 11/02/19 at 12:00 Fish Oil (Fish Oil) 2,000 mg DAILY PO Last administered on 11/03/19 08:51; Start 11/02/19 at 20:00 Lisinopril (Prinivil) 5 mg DAILY PO Last administered on 11/03/19 08:50; Start 11/02/19 at 12:00 Metoprolol Succinate (Toprol Xl) 50 mg DAILY PO Last administered on 11/03/19at 08:47; Start 11/02/19 at 12:00 Sotalol HCl (Betapace) 120 mg BID PO Last administered on 11/03/19at 08:50; Start 11/02/19 at 21:00 Active Scripts Active Reported Fenofibrate (Fenofibrate Nanocrystallized) 145 Mg Tablet 145 Mg PO DAILY Zetia (Ezetimibe) 10 Mg Tablet 1 Tab PO DAILY 30 Days Farxiga (Dapagliflozin Propanediol) 5 Mg Tablet 5 Mg PO DAILY Levothyroxine Sodium 25 Mcg Tablet 1 Tab PO DAILY Sotalol (Sotalol Hcl) 80 Mg Tablet 120 Mg PO BID Lipitor (Atorvastatin Calcium) 80 Mg Tablet 80 Mg PO HS Aspir 81 (Aspirin) 81 Mg Tablet.dr 81 Mg PO DAILY Lisinopril 2.5 Mg Tablet 1 Tab PO DAILY Toprol Xl (Metoprolol Succinate) 50 Mg Tab.er.24h 1 Tab PO DAILY Vitamin D3 (Cholecalciferol (Vitamin D3)) 1,000 Unit Tablet 2,000 Unit PO DAILY Clopidogrel (Clopidogrel Bisulfate) 75 Mg Tablet 1 Tab PO DAILY Metformin Hcl Er (Metformin Hcl) 500 Mg Tab.er.24h 1 Tab PO DAILY Fish Oil 1,200 Mg Fish Oil (Fish Oil/Dha/Epa) 1 Each Capsule 2 Each PO DAILY Vitals/I & O Vital Sign - Last 24 Hours 11/02/19 11/02/19 11/02/19 11/02/19 11:00 12:32 12:33 12:34 Temp 97.6 97.6 Pulse 59 59 59 59 Resp 20 B/P (MAP) 146/93 (110) 146/93 146/93 146/93 Pulse Ox 97 O2 Delivery Room Air 11/02/19 11/02/19 11/02/19 11/02/19 15:00 19:55 20:00 20:34 Temp 98.1 98.3 98.1 98.3 Pulse 50 60 60 Resp 20 18 B/P (MAP) 126/79 (95) 124/72 (89) 124/72 Pulse Ox 96 97 O2 Delivery Room Air Room Air Room Air 11/02/19 11/03/19 11/03/19 11/03/19 22:52 02:13 07:14 08:00 Temp 98.8 97.9 98.0 98.8 97.9 98.0 Pulse 52 51 56 Resp 16 16 16 B/P (MAP) 96/57 (70) 103/52 (69) 107/64 (78) Pulse Ox 96 96 97 O2 Delivery Room Air Room Air Room Air Room Air 11/03/19 11/03/19 11/03/19 08:47 08:50 08:50 Pulse 56 56 56 B/P (MAP) 107/64 107/64 107/64 Intake and Output 11/02/19 11/02/19 11/03/19 15:00 23:00 07:00 Intake Total 200 ml 320 ml 180 ml Balance 200 ml 320 ml 180 ml Justicifation of Admission Dx: Justifications for Admission: Justification of Admission Dx: Yes Stroke - Ischemic: Stroke-Ischemic CLAUDIA DESAI MD Nov 03, 2019 09:47
[2019-11-03 10:33] VITALS: BP 124/77
--- NOTE | 2019-11-03 10:37 | CONS ---
DATE OF CONSULTATION: 11/03/2019 FAMILY PHYSICIAN: Дмитрий Marino MD ATTENDING PHYSICIAN: Contreras Mckinney MD REASON FOR CONSULTATION: The patient was seen at the request of Dr. Mckinney for rehab evaluation. HISTORY OF PRESENT ILLNESS: This is a 64-year-old right-handed male, who woke up around 10:00 a.m. on 11/02/2019, feeling nauseated, dizzy, and noticed around noon that he had left-sided weakness. Later in the day, his family noted his left facial droop. He finally came to the Emergency Room Department and Dr. Falcon discussed the case with the Emergency Room physician and they agreed that the patient is not a candidate for alteplase. The patient has been told that he had a stroke in the past only showing up on head scan as he never had clinical stroke. No history of seizure or head injury. PAST MEDICAL HISTORY: Includes coronary artery disease, hypertension, myocardial infarction, hyperlipidemia, cardiomyopathy, diabetes mellitus, status post pacemaker with defibrillator placement, coronary stenting. Family history of coronary artery disease. He lives alone, had stairs to manage. Quit smoking about 12 years ago. Retired recently. Rarely takes alcohol. He is not known allergic to any medication. The patient had radiological studies since admission, including carotid Doppler studies, which failed to reveal any significant stenotic disease. CT scan of the brain revealed small hypodensity in the right cerebellum, may represent chronic versus subacute ischemia. Additionally, chronic-appearing infarct at the right frontal lobe is slightly increased in size when compared to the study of 2015. The patient is being followed by physical therapy and occupational therapy and speech pathology. He denies any difficulty with bowel or bladder control or swallowing. Therapy recommended inpatient rehab, but the patient decided he wants to go home with the help from family and attend to outpatient therapy. PHYSICAL EXAMINATION: On physical examination today revealed a middle-aged male. He is alert, oriented to time, place, person and circumstance, follows commands appropriately, moves all 4 extremities voluntarily. He had 5/5 grade muscle strength in his extremities, relatively increased weakness in left shoulder external rotators and left hand intrinsic muscles. He had obvious left central facial paresis. The patient had equal perception of touch and pinprick sensation bilaterally. Deep tendon reflexes are brisk bilaterally. The patient had no difficulty with communication or swallowing. He is having mild incoordination using his left upper and lower extremities. He is independent with bed mobility, transfers, and up walking. He can even walk on his tiptoes and on his heels. He had some difficulty to try to walk one foot in front of other in a straight line. He climbed a flight of stairs holding onto 1 railing without any difficulty. I did not see any foot drag. His skin is intact at this time. ASSESSMENT: A middle-aged male with recent onset cerebrovascular accident with mild left hemiparesis and ataxia. RECOMMENDATIONS: Agree with the plans for discharge to home with outpatient followup by physical therapy, occupational therapy and speech pathology to help improve his functional mobility, self-care, and communication skills, to check post-voiding urine residual to make sure he is emptying the bladder before discharge. Dr. Mckinney, I appreciate asking me to participate in the care of this interesting patient. I will be glad to see him for followup with you on as-needed basis. CORTES RAI MD DR: KRISH/willian JOB#: [id number] / [id number] ДМИТРИЙ Lambert MD
[2019-11-03] MEDS ORDERED: ASPI325T11 PO (10:38)
--- NOTE | 2019-11-03 11:52 | NUR ---
SS following up with discharge planning. Discharge orders received for home with outpatient PT/OT/ST. SS met with pt and family and discussed. Pt and family requesting home with outpatient therapy at [facility]. SS phoned and faxed discharge orders and clinical to [facility] outpatient, [phone]; fax [phone]. Pt's RN notified.
--- NOTE | 2019-11-03 13:00 | NUR ---
DISCHARGED PATIENT HOME WITH OUT-PATIENT THERAPY ORDERS. PIV AND HEART MONITOR REMOVED. ESCORTED PATIENT PER WHEELCHAIR INTO A PRIVATE VEHICLE.
--- NOTE | 2019-11-03 14:51 | PDOC3 ---
Discharge Summary Visit Information Date of Admission: Nov 02, 2019 Date of Discharge: Nov 03, 2019 Admitting Diagnosis Comment: Acute CVA. Strokes evident on CT, right cerebellum and right frontal lobe, clinically lacunar infarct in the right hemisphere without evidence of large- vessel cerebrovascular disease. 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 Nml device function, 0 A/V pacing. Notable for multiple VT episodes no shock but noted with several ATP treatment with last episode in 10/31/2019. No significant arrhythmias yesterday. 0 History of AFIB. Not MRI compatible Essential HTN: controlled VT with prior ablation: last episode as noted above. 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 Clinically stable CKD stage 3a Final Diagnosis Problems Medical Problems: (1) CVA (cerebral vascular accident) Status: Acute Acute CVA. Strokes evident on CT, right cerebellum and right frontal lobe, clinically lacunar infarct in the right hemisphere without evidence of large- vessel cerebrovascular disease. 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 Nml device function, 0 A/V pacing. Notable for multiple VT episodes no shock but noted with several ATP treatment with last episode in 10/31/2019. No significant arrhythmias yesterday. 0 History of AFIB. Not MRI compatible Essential HTN: controlled VT with prior ablation: last episode as noted above. 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 Clinically stable CKD stage 3a Brief Hospital Course Allergies Allergies Coded Allergies Type Severity Reaction Last Updated Verified No Known Drug Allergies 05/26/14 No Vital Signs Vital Signs Date Time Temp Pulse Resp B/P (MAP) Pulse Ox O2 Delivery O2 Flow Rate FiO2 11/03/19 10:33 98.2 55 16 124/77 (93) 97 Room Air 98.2 Lab Results Laboratory Tests Test 11/01/19 21:05 11/01/19 21:08 11/01/19 21:12 11/02/19 00:33 Glucose (Fingerstick) 148 mg/dL (70-99) White Blood Count 10.0 x10^3/uL (4.0-11.0) Red Blood Count 5.04 x10^6/uL (4.30-5.70) Hemoglobin 14.0 g/dL (13.0-17.5) Hematocrit 42.4 % (39.0-53.0) Mean Corpuscular Volume 84 fL (79-100) Mean Corpuscular Hemoglobin 28 pg (25-35) Mean Corpuscular Hemoglobin Concent 33 g/dL (31-37) Red Cell Distribution Width 14.1 % (11.5-14.5) Platelet Count 162 x10^3/uL (140-400) Prothrombin Time 12.8 SEC (11.7-14.0) Prothromb Time International Ratio 1.0 (0.8-1.1) Activated Partial Thromboplast Time 30 SEC (24-38) Sodium Level 141 mmol/L (136-145) Potassium Level 4.7 mmol/L (3.5-5.1) Chloride Level 105 mmol/L (98-107) Carbon Dioxide Level 27 mmol/L (21-32) Anion Gap 9 (6-14) 18 mmol/L (6-14) Blood Urea Nitrogen 23 mg/dL (8-26) Creatinine 1.5 mg/dL (0.7-1.3) Estimated GFR (Cockcroft-Gault) 46.8 Glucose Level 150 mg/dL (70-99) 148 mg/dL (70-99) Calcium Level 9.4 mg/dL (8.5-10.1) Bedside Hemoglobin 14.6 g/dL (14-18) Bedside Hematocrit 43 % (37-52) Bedside Sodium 141 mmol/L (135-145) Bedside Potassium 4.5 mmol/L (3.5-5.0) Bedside Chloride 107 mmol/L (98-110) Bedside Total CO2 22 mmol/L (23-32) Bedside Blood Urea Nitrogen 24 mg/dL (8-26) Bedside Creatinine 1.4 mg/dL (0.5-1.4) Bedside Ionized Calcium (Gretchen) 1.17 mmol/L (1.13-1.32) Troponin I Quantitative < 0.017 ng/mL (0.000-0.055) Test 11/03/19 05:00 Sodium Level 142 mmol/L (136-145) Potassium Level 3.8 mmol/L (3.5-5.1) Chloride Level 106 mmol/L (98-107) Carbon Dioxide Level 25 mmol/L (21-32) Anion Gap 11 (6-14) Blood Urea Nitrogen 26 mg/dL (8-26) Creatinine 1.4 mg/dL (0.7-1.3) Estimated GFR (Cockcroft-Gault) 50.7 Glucose Level 113 mg/dL (70-99) Calcium Level 9.3 mg/dL (8.5-10.1) Magnesium Level 2.1 mg/dL (1.8-2.4) Triglycerides Level 154 mg/dL (0-150) Cholesterol Level 106 mg/dL (0-200) LDL Cholesterol, Calculated 52 mg/dL (0-100) VLDL Cholesterol, Calculated 31 mg/dL (0-40) Non-HDL Cholesterol Calculated 83 mg/dL (0-129) HDL Cholesterol 23 mg/dL (40-60) Cholesterol/HDL Ratio 4.6 Laboratory Tests Test 11/03/19 05:00 Sodium Level 142 mmol/L (136-145) Potassium Level 3.8 mmol/L (3.5-5.1) Chloride Level 106 mmol/L (98-107) Carbon Dioxide Level 25 mmol/L (21-32) Anion Gap 11 (6-14) Blood Urea Nitrogen 26 mg/dL (8-26) Creatinine 1.4 mg/dL (0.7-1.3) Estimated GFR (Cockcroft-Gault) 50.7 Glucose Level 113 mg/dL (70-99) Calcium Level 9.3 mg/dL (8.5-10.1) Magnesium Level 2.1 mg/dL (1.8-2.4) Triglycerides Level 154 mg/dL (0-150) Cholesterol Level 106 mg/dL (0-200) LDL Cholesterol, Calculated 52 mg/dL (0-100) VLDL Cholesterol, Calculated 31 mg/dL (0-40) Non-HDL Cholesterol Calculated 83 mg/dL (0-129) HDL Cholesterol 23 mg/dL (40-60) Cholesterol/HDL Ratio 4.6 Brief Hospital Course History of Present Illness Patient is a 64 yo male with multiple medical comorbidities including strokes in the past who comes with a history of noticing around 10 AM the day prior to his admission he woke up with nausea and sesnation of left facial droop, he also reported weakness to his left arm and leg. He decided to go back to sleep and in the afternoon his symptoms remained and called his son and was taken to ER. Denies any chest pain, palpitations, or SOA and lately he has been more fatigue than usual. No visual or auditory changes. No forms of aphasia. No recent falls or any injury. There has been no subtle stroke symptoms in the last week and no hx of CVA. He does have cardiomyopathy and VT with ablations in the past but no afib or atrial flutter. Patient was evaluated and he was not a candidate for t Pa since he went back to sleep when his symptoms initially started. He feels better today compared to yesterday, he reports having had many "mini strokes". He has an extensive cardiac history with an AICD in place. Plan of care was discussed in detail. We were asked to admit for further evaluation of hsi stroke like symptoms. Patient was found to have infarcts on CT right cerebellum and right frontal lobe, the patient could not get an MRI since he has an AICD in place. Patient has cardiomyopathy which is followed by Dr. Bubba Poe, patient was deemed appropriate for discharge from the neurological cardiology call standpoint of view. Recommendations from our devops consultant was to continue aspirin Plavix and statin therapy. Rehab has been set up in the outpatient setting since the patient understands that if he goes to a facility he will be able to be visited by his family members. Family seems to have come together with case management and agreed to a safe discharge plan, greater than 35 minutes were spent in the discharge process the patient in counseling coordination of care and arrangements for a safe discharge. He will continue in the outpatient setting to have physical therapy Signs and symptoms of concern were discussed prior to discharge all of his concerns were addressed to the best of my abilities PHYSICAL EXAM Alert. Oriented to time, place and person. PERRL. EOMI. CN: no focal findings. Muscle tone: normal. Muscle strength: 4/5 left hemiparesis DTR: 2+ Plantar reflex: flexor Gait: not examined in bed. Sensory exam: no abnormal findings. No cerebellar signs elicited. Assessment Assessment ECHO <Conclusion> The systolic function is moderately impaired. The Ejection Fraction is 30-35%. Wall motion consistent with pacemaker activation. There is hypokinesis of the m id to distal septal wall and hypokinesis of the inferior wall. There is a pacemaker lead in the right ventricle. Signed by : Gene Vega, Electronically Approved : 11/02/2019 13:22:07 IMAGING REPORT Signed PATIENT: NATE ANSARI ACCOUNT: [id number] : 1955 LOCATION: [address] [place] [address] AGE: 64 SEX: M EXAM STATUS: ADM IN ORD. PHYSICIAN: CLUADIA DESAI MD REASON: CVA PROCEDURE: DOPPLER CAROTID BILAT EXAM: Carotid Doppler sonogram. HISTORY: Cerebral infarction. TECHNIQUE: Walsh scale and color Doppler sonographic evaluation of the neck with spectral waveform analysis was performed and static images are submitted for review. FINDINGS: There is mild atherosclerotic plaque involving the proximal right internal carotid artery. The peak systolic velocity within the right common carotid artery is 82 cm/sec. The peak systolic velocity within the right internal carotid artery is 68 cm/sec and the end diastolic velocity within the right internal carotid artery is 29 cm/sec. The right ICA/CCA ratio is less than 1.0. The peak systolic velocity within the left common carotid artery is 115 cm/sec. The peak systolic velocity within the left internal carotid artery is 73 cm/sec and the end diastolic velocity within the left internal carotid artery is 24 cm/sec. The left ICA/CCA ratio is less than 1.0. There is normal antegrade flow within both vertebral arteries. IMPRESSION: No Doppler evidence of greater than 50 percent stenosis involving the internal carotid arteries. PQRS Compliance Statement - Stenosis calculations for CT, MR and conventional angiography are based upon measurement of the distal ICA diameter in accordance with the NASCET methodology. Stenosis calculations for carotid ultrasound studies are derived from validated velocity criteria which are known to correlate with the NASCET methodology. Electronically signed by: Mitzy Wilburn MD (11/02/2019 12:49 PM) [id number] Discharge Information Condition at Discharge: Improved Follow Up: Weeks Disposition/Orders: D/C to Home Scheduled Aspirin (Aspirin Ec) 325 Mg Tablet., 325 MG PO DAILYWBKFT for ANTIPLATELET for 30 Days, #30 Prescribed by: RAY AVILES MD on 11/03/19 1038 Atorvastatin Calcium (Lipitor) 80 Mg Tablet, 80 MG PO HS for FOR CHOLESTEROL, #30 Ref 0 (Reported) Entered as Reported by: MITZY TAM on 07/05/19 110 Last Action: Converted on 11/02/191120 by RAY AVILES MD Cholecalciferol (Vitamin D3) (Vitamin D3) 1,000 Unit Tablet, 2,000 UNIT PO DAILY, (Reported) Entered as Reported by: Hadley Arriola on 05/26/142322 Last Action: Continued on 11/02/191120 by RAY AVILES MD Clopidogrel Bisulfate (Clopidogrel) 75 Mg Tablet, 1 TAB PO DAILY, #90 Ref 1 (Reported) Entered as Reported by: Olimpia Anguiano on 05/26/142103 Last Action: Continued on 11/02/191120 by RAY AVILES MD Dapagliflozin Propanediol (Farxiga) 5 Mg Tablet, 5 MG PO DAILY for diabetes, (Reported) Entered as Reported by: CELESTE VELÁSQUEZ on 09/15/19738 Last Action: Converted on 11/02/191120 by RAY AVILES MD Ezetimibe (Zetia) 10 Mg Tablet, 1 TAB PO DAILY for cholesterol for 30 Days, #30 Ref 0 (Reported) Entered as Reported by: CELESTE VELÁSQUEZ on 09/15/19738 Last Action: Continued on 11/02/191120 by RAY AVILES MD Fenofibrate Nanocrystallized (Fenofibrate) 145 Mg Tablet, 145 MG PO DAILY for treatment for high fat diet, (Reported) Entered as Reported by: KINA CARUSO RN on 11/01/19 2343 Last Action: Converted on 11/02/191120 by RAY AVILES MD Fish Oil/Dha/Epa (Fish Oil 1,200 Mg Fish Oil) 1 Each Capsule, 2 EACH PO DAILY, (Reported) Entered as Reported by: Olimpia Anguiano on 05/26/142103 Last Action: Converted on 11/02/191120 by RAY AVILES MD Levothyroxine Sodium (Levothyroxine Sodium) 25 Mcg Tablet, 1 TAB PO DAILY for thyroid, #30 Ref 5 (Reported) Entered as Reported by: CELESTE VELÁSQUEZ on 7/24/20 0739 Last Action: Continued on 11/02/191120 by RAY AVILES MD Lisinopril (Lisinopril) 2.5 Mg Tablet, 1 TAB PO DAILY, #30 Ref 5 (Reported) Entered as Reported by: Zahra Marroquin on 05/31/14 1546 Last Action: Converted on 11/02/191120 by RAY AVILES MD Metformin Hcl (Metformin Hcl Er) 500 Mg Tab.er.24h, 1 TAB PO DAILY, #90 Ref 3 (Reported) Entered as Reported by: Olimpia Anguiano on 05/26/14 2104 Last Action: Continued on 11/02/191120 by RAY AVILES MD Metoprolol Succinate (Toprol Xl) 50 Mg Tab.er.24h, 1 TAB PO DAILY, #30 Ref 5 (Reported) Entered as Reported by: Zahra Marroquin on 05/31/14 1546 Last Action: Converted on 11/02/191120 by RAY AVILES MD Sotalol Hcl (Sotalol) 80 Mg Tablet, 120 MG PO BID for hrn, (Reported) Entered as Reported by: MITZY TAM on 07/05/19 1103 Last Action: Reviewed on 11/02/19 1635 by ABELARDO JEREZ Discontinued Medications Aspirin (Aspir 81) 81 Mg Tablet.dr, 81 MG PO DAILY, (Reported) Entered as Reported by: SCAR ONOFRE on 08/27/16 1028 Last Action: Continued on 11/02/191120 by RAY AVILES MD Justicifation of Admission Dx: Justifications for Admission: Justification of Admission Dx: Yes Stroke - Ischemic: Stroke-Ischemic RAY AVILES MD Nov 03, 2019 14:51
== END 2019-11-03 13:00 | disposition home or self-care (01) | DRG 65 ==
LOC: ER 20:56 → ED HOLD 21:42 → 2 NORTH 22:32 → OBSVTOIN 11-02 09:50
PROVIDERS: ADMIT Family Medicine; ATTEND Family Medicine
DX: I63.81 Other cerebral infarction due to occlusion or stenosis of small artery (principal); I69.354 Hemiplegia and hemiparesis following cerebral infarction affecting left non-dominant side; I13.0 Hypertensive heart and chronic kidney disease with heart failure and stage 1 through stage 4 chronic kidney disease, or unspecified chronic kidney disease; I31.3 Pericardial effusion (noninflammatory); I42.8 Other cardiomyopathies; I50.22 Chronic systolic (congestive) heart failure; E03.9 Hypothyroidism, unspecified; N18.3 Chronic kidney disease, stage 3 (moderate); I25.10 Atherosclerotic heart disease of native coronary artery without angina pectoris; I25.5 Ischemic cardiomyopathy; E11.22 Type 2 diabetes mellitus with diabetic chronic kidney disease; I48.91 Unspecified atrial fibrillation; R29.704 NIHSS score 4; G47.33 Obstructive sleep apnea (adult) (pediatric); M19.90 Unspecified osteoarthritis, unspecified site; E78.5 Hyperlipidemia, unspecified; Z95.810 Presence of automatic (implantable) cardiac defibrillator; Z95.5 Presence of coronary angioplasty implant and graft; Z87.891 Personal history of nicotine dependence; Z82.49 Family history of ischemic heart disease and other diseases of the circulatory system; Z79.899 Other long term (current) drug therapy; Z79.82 Long term (current) use of aspirin; Z79.02 Long term (current) use of antithrombotics/antiplatelets; I69.393 Ataxia following cerebral infarction; I25.2 Old myocardial infarction
CPT/HCPCS: 36415; 70450; 80047; 80048; 80061; 82962; 83735; 84484; 85027; 85610; 85730; 93005; 93306; 93880; 99285; G0378; G0379; 92526-GN; 92610-GN; 97110-GO; 97110-GP; 97116-GP; 97535-GO

== ENCOUNTER → 2019-11-30 | Outpatient (CLI) | payer MEDICARE ==
[2019-11-03 10:33] VITALS: BP 124/77
[~2019-11-30] MED LIST changes: +ASPI325T11 PO; +BARIUM SULFATE 40% (APPLE) 148 GM PWD. PO ONE; +FENO145T3 PO
--- NOTE | 2019-11-30 15:21 | RAD ---
VIDEO SWALLOW STUDY Reason for Examination: Reason: DYSPHAGIA/1.6 FLUORO TIME / Spl. Instructions: / History: With the patient in the lateral projection, using video observation and recording, the patient was asked to swallow barium liquid, barium nectar, barium impregnated pudding, and chew and swallow barium impregnated mixed consistency and cracker. No penetration or aspiration. Interpretation (personally supervised): Total fluoroscopy time was 1.6 minutes Fluoroscopic spot images: 0 Impression: 1. No evidence of aspiration or penetration. Please refer to speech pathology notes for further details. Electronically signed by: Brad Carrero DO (11/30/2019 3:18 PM) [id number]
== END ==
LOC: RAD 14:11
PROVIDERS: ATTEND Physical Medicine & Rehabilitation
DX: R13.10 Dysphagia, unspecified (principal); R47.1 Dysarthria and anarthria; K59.00 Constipation, unspecified; I63.9 Cerebral infarction, unspecified
CPT/HCPCS: 74230; 92611-GN

== ENCOUNTER → 2021-02-28 | Outpatient (CLI) | payer MEDICARE ==
[~2021-02-28] MED LIST changes: -BARIUM SULFATE 40% (APPLE) 148 GM PWD. PO ONE; -LISI-334 PO; -LISI2.5T PO; +LISI2.5T12 PO; +LISI20TA18 PO
--- NOTE | 2021-03-03 13:04 | CARD ---
MR#: [id number] Date of Study: 02/28/2021 Ordering Physician: LEON GOULD, Referring Physician: LEON GOULD Tech: Charisse Hurtado [facility] APPROVED REPORT EXAM: Two-dimensional and M-mode echocardiogram with Doppler and color Doppler. Other Information Quality : GoodHR: 66bpm INDICATION Cardiomyopathy RISK FACTORS Hypertension 2D DIMENSIONS RVDd3.4 (2.9-3.5cm)Left Atrium(2D)4.0 (1.6-4.0cm) IVSd1.0 (0.7-1.1cm)Aortic Root(2D)3.5 (2.0-3.7cm) LVDd5.4 (3.9-5.9cm)LVOT Diameter2.0 (1.8-2.4cm) PWd0.9 (0.7-1.1cm)LVDs4.9 (2.5-4.0cm) FS (%) 10.3 %SV32.1 ml LVEF(%)22.3 (>50%) Aortic Valve AoV Peak Prasanth.126.7cm/sAoV VTI26.0cm AO Peak GR.6.4mmHgLVOT Peak Prasanth.73.0cm/s AO Mean GR.3mmHgAVA (VMAX)1.88cm2 AI P 1/2 [id number] Mitral Valve MV E Tnsjdfnv14.4cm/sMV DECEL [id number] MV A Litovhnd43.7cm/sE/A Ratio0.7 Pulmonary Valve PV Peak Gyovacvj360.8cm/s Tricuspid Valve TR P. [id number]/sTR Peak Gr.25mmHg LEFT VENTRICLE The Left Ventricle is borderline dilated. There is normal left ventricular wall thickness. The left v entricular systolic function is severely impaired. Estimated ejection fraction 25%. There is global hypokinesis of the left ventricle. Transmitral Doppler flow pattern is Grade I-abnormal relaxation pa ttern. RIGHT VENTRICLE The right ventricle is normal size. There is normal right ventricular wall thickness. Systolic functi on is severely reduced. ATRIA The left atrium size is normal. The right atrium size is normal. The interatrial septum is intact wit h no evidence for an atrial septal defect or patent foramen ovale as noted on 2-D or Doppler imaging. AORTIC VALVE The aortic valve is normal in structure and function. Doppler and Color Flow revealed mild aortic reg urgitation. There is no significant aortic valvular stenosis. MITRAL VALVE The mitral valve is normal in structure and function. There is no evidence of mitral valve prolapse. There is no mitral valve stenosis. Doppler and Color-flow revealed mild mitral regurgitation. TRICUSPID VALVE The tricuspid valve is normal in structure and function. Doppler and Color Flow revealed mild tricusp id regurgitation. Estimated PAP 30 mmHg. There is no tricuspid valve stenosis. PULMONIC VALVE The pulmonary valve is normal in structure and function. Doppler and Color Flow revealed mild pulmoni c valvular regurgitation. GREAT VESSELS The aortic root is normal in size. The ascending aorta is normal in size. The IVC is normal in size a nd collapses >50% with inspiration. PERICARDIAL EFFUSION There is no evidence of significant pericardial effusion. Critical Notification Critical Value: No <Conclusion> The left ventricular systolic function is severely impaired. Estimated ejection fraction 25%. Pacer/ICD led noted RA/RV. Transmitral Doppler flow pattern is Grade I-abnormal relaxation pattern. Mild aortic regurgitation. Mild mitral regurgitation. Mild tricuspid regurgitation. Estimated PAP 30 mmHg. There is no evidence of significant pericardial effusion. Signed by : Leon Gould, Electronically Approved : 03/03/2021 13:03:38
== END ==
LOC: ECHO 15:21
PROVIDERS: ATTEND Internal Medicine Cardiovascular Disease
DX: I08.8 Other rheumatic multiple valve diseases (principal); I47.2 Ventricular tachycardia
CPT/HCPCS: 93306